=== PATIENT | male | born 1965 | race Caucasian/White ===

== ENCOUNTER → 2020-05-21 11:16 | Outpatient (BNVA) | payer OTHER, SELFPAY | PROVIDERS: PCP Internal Medicine; Visit Provider Internal Medicine Endocrinology, Diabetes & Metabolism | DX: E11.65 Type 2 diabetes mellitus with hyperglycemia (principal); Z79.4 Long term (current) use of insulin; E78.5 Hyperlipidemia, unspecified; I10 Essential (primary) hypertension; E66.3 Overweight; E55.9 Vitamin D deficiency, unspecified; Z79.899 Other long term (current) drug therapy | CPT/HCPCS: 82947; 99214 ==

== ENCOUNTER 2020-05-28 09:26 | Outpatient (REF) | payer OTHER, SELFPAY ==
[2020-05-28 10:54] LABS: Estimated Average Glucose 146 mg/dL; Hemoglobin A1c % 6.7 %
[2020-05-28 11:14] LABS: Alanine Aminotransferase 33 U/L (0-40); Albumin Level 4.5 g/dL (3.5-5.0); Alkaline Phosphatase 81 U/L (39-117); Anion Gap 13 (12-20); Aspartate Amino Transferase 20 U/L (5-37); Bilirubin Total 0.7 mg/dL (0.0-1.0); Blood Urea Nitrogen 13 mg/dL (9-16); Calcium 9.8 mg/dL (8.4-10.2); Carbon Dioxide 28 mmol/L (22-29); Chloride 105 mmol/L (96-108); Cholesterol 114 mg/dL; Estimated Glomerular Filt Rate > 60; Glucose Fasting 113 mg/dL (60-99); HDL Cholesterol 46 mg/dL; LDL Cholesterol Calculated 45 mg/dl; Potassium 4.6 mmol/l (3.3-5.1); Sodium 141 mmol/L (135-145); Total Protein 6.7 g/dL (6.5-8.0); Triglycerides 117 mg/dL
[2020-05-28 11:25] LABS: Vitamin B12 626 pg/mL (200-900)
[2020-05-28 11:26] LABS: Creatinine Urine 123.11 mg/dL
[2020-05-29 18:01] LABS: LDL Cholesterol Direct 53 mg/dL (<100)
== END 2020-05-28 09:27 | disposition home or self-care (01) ==
LOC: HO.LAB 09:26
PROVIDERS: PCP Internal Medicine; Referring Provider Internal Medicine Endocrinology, Diabetes & Metabolism; Visit Provider Internal Medicine
DX: E11.9 Type 2 diabetes mellitus without complications (principal); E78.00 Pure hypercholesterolemia, unspecified; I10 Essential (primary) hypertension
CPT/HCPCS: 80053; 80061; 82043; 82607; 83036; 83721

== ENCOUNTER → 2020-08-19 10:57 | Outpatient (BNVA) | payer OTHER, SELFPAY | PROVIDERS: PCP Internal Medicine; Visit Provider Internal Medicine Endocrinology, Diabetes & Metabolism | DX: Z76.89 Persons encountering health services in other specified circumstances (principal) | CPT/HCPCS: Q3014 ==

== ENCOUNTER 2020-08-28 08:07 | Outpatient (REF) | payer OTHER, SELFPAY ==
[2020-08-28 09:24] LABS: Chloride 105 mmol/L (96-108); Potassium 4.7 mmol/l (3.3-5.1); Sodium 140 mmol/L (135-145)
[2020-08-28 09:25] LABS: Alanine Aminotransferase 39 U/L (0-40); Albumin Level 4.7 g/dL (3.5-5.0); Alkaline Phosphatase 86 U/L (39-117); Anion Gap 12 (12-20); Aspartate Amino Transferase 21 U/L (5-37); Bilirubin Total 0.6 mg/dL (0.0-1.0); Blood Urea Nitrogen 17 mg/dL (9-16); Calcium 9.6 mg/dL (8.4-10.2); Carbon Dioxide 28 mmol/L (22-29); Cholesterol 106 mg/dL; Estimated Glomerular Filt Rate > 60; Glucose Random 112 mg/dL (60-115); HDL Cholesterol 40 mg/dL; LDL Cholesterol Calculated 46 mg/dl; Total Protein 6.9 g/dL (6.5-8.0); Triglycerides 100 mg/dL
[2020-08-28 11:18] LABS: Estimated Average Glucose 154 mg/dL
== END 2020-08-28 08:08 | disposition home or self-care (01) ==
LOC: HO.LAB 08:07
PROVIDERS: Visit Provider Internal Medicine
DX: E11.9 Type 2 diabetes mellitus without complications (principal); E78.00 Pure hypercholesterolemia, unspecified; I10 Essential (primary) hypertension
CPT/HCPCS: 36415; 80053; 80061; 83036

== ENCOUNTER 2020-09-01 15:52 | Outpatient (REF) | payer OTHER, SELFPAY | END 2020-09-01 15:53 | disposition home or self-care (01) | LOC: HO.LAB 15:52 | PROVIDERS: PCP Internal Medicine; Visit Provider Internal Medicine | DX: Z20.822 Contact with and (suspected) exposure to COVID-19 (principal) | CPT/HCPCS: 36415; C9803; U0003 ==

== ENCOUNTER 2020-09-04 14:25 | Outpatient (REF) | payer OTHER, SELFPAY ==
--- NOTE | 2020-09-04 15:05 | XR_ITS ---
EXAMINATION: XR HAND, LEFT CLINICAL INFORMATION: Trigger finger, left middle finger. COMPARISON: None TECHNIQUE: PA, lateral, and oblique views of the left hand. FINDINGS: There is no fracture or dislocation. Alignment is anatomic. Joint spaces are maintained. Small osteophytes at the first interphalangeal joint. Mild degenerative changes along the radial aspect of the wrist. Unremarkable appearance of the third digit. The soft tissues are unremarkable. XR/XR hand LT min 3V IMPRESSION: Mild degenerative changes as above. Unremarkable appearance of the third digit.
== END 2020-09-04 14:26 | disposition home or self-care (01) ==
LOC: HO.XRAY 14:25
PROVIDERS: PCP Internal Medicine; Referring Provider Internal Medicine; Visit Provider Student in an Organized Health Care Education/Training Program
DX: M65.332 Trigger finger, left middle finger (principal)
CPT/HCPCS: 73130; 99212

== ENCOUNTER 2020-09-23 13:30 | Outpatient (RCR) | payer OTHER, SELFPAY ==
--- NOTE | 2020-09-08 14:05 | MHC.OT.OEV ---
[address] [phone] F: [phone] Occupational Therapy Evaluation Diagnosis: TRIGGER FINGER OF L MF Date of Onset: 04/08/20 Date of Surgery: Attending Provider: Brooke Baker Prescribed Treatment: [facility] OLGA JACKSON Follow Up Appointment: History of Current Condition: REPORTS A THREE OR FOUR MONTH HISTORY OF TRIGGER FINGER TO THE LEFT MIDDLE FINGER, WELL PAIN TO THE LEFT INDEX FINGER. HE REPORTS PAIN IS GREATEST IN THE MORNING UPON WAKING. 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 Living Situation, Family and/or Social Support: LIVES WITH SPOUSE Current Level of Function and Occupation Self Care, Employment, Leisure: MILD DIFFICULTIES WITH BUTTONS, ZIPPERS AND TYING SHOES; OCCASIONAL DIFFICULTIES WITH CLEANING HOME WHEN ASSISTING SPOUSE Sleep: MODERATE DIFFICULTIES, PAIN GREATEST IN THE MORNING Driving: MILD DIFFICULTIES WITH GRASPING STEERING WHEEL WITH L HAND Pain Assessment Pain Score: 7 Pain Scale Used: Numeric (0 - 10) Pain Location and Description: L PIP OF MF/IF Aggravating Factors: FORCEFUL/ CLOSED FIST/ LOCKING OF DIGIT Alleviating Factors: TAKING ACETAMINOPHEN, IBUPROFEN; COLD INCREASES PAIN Skin and Soft Tissue Assessment Skin and Soft Tissue: Swelling Comments: OA CHANGES AT DIGITS, VERTICAL LINES ON VOLAR DIGITS, VOLAR NODULE D2/D3 MCP Sensory Assessment Temperature: Light Touch: WFL Proprioception: Vibration: Comments: DENIES Edema Assessment Upper Extremity: Left Impaired Lower Extremity: Comments: MILD EDEMA AT PIPJ CIRCUMFERENCE OF PIP LEFT 6.6 MIDDLE FINGER AND INDEX FINGER Dexterity Assessment Dexterity: Left Impaired Comments: FUNCTIONAL DEXTERITY TEST: LEFT 44 SECONDS (MOD FUNCTIONAL) ; RIGHT 24 SECONDS (FUNCTIONAL) Special Tests Comments: AROM(PROM) Strength Wrist Flexion: Extension: Ulnar Deviation: Radial Deviation: Comments: B/L ELBOW AND WRIST AROM WFL Flexion: Extension: Ulnar Deviation: Radial Deviation: Comments: Digits Index MCP: PIP: L 0/104 DIP: Long MCP: PIP: L 0/76 DIP: Ring MCP: PIP: DIP: Small MCP: PIP: DIP: Comments: Gross Grasp: L 82, R 100 Lateral Pinch: L 18, R 17 Two-Point Pinch: L 11, R 15 Three-Jaw Evangelist: L 17, R 20 Comments: Patient Education Primary Language: Manager Product Marketing Required: Yes Current Knowledge: Understands information with skills for self-management Teaching Method: Education Needs Identified on Evaluation: ADL's Disease Information Equipment Use Exercise Pain Safety How did patient/family demonstrate learning? Patient demonstrates Patient verbalizes Barriers to Learning: None Readiness for Learning: Accepting Who was educated? Patient Comments: JODI [id number] NGA Plan of Care Assessment: ROMULO IS A 55 Y/O DIABETIC M WITH A 3-4 MO HX OF TRIGGER FINGER TO NON-DOMINANT L HAND. HE REPORTS MILD-MODERATE DIFFICULTIES WITH PERFORMING ADLs AND IADLs. HE REPORTS PAIN IS GREATEST UPON WAKING IN THE MORNING OR WHEN HE MAKES A COMPLETE FIST OR WITH FORCEFUL GRIPPING. HE WOULD BENEFIT FROM CONTINUED OUTPATIENT OT TO ADDRESS THE AREAS MENTIONED ABOVE. STG Duration: 2 WEEKS Short Term Goals: IND HEP IND SELF MASSAGE IND ORTHOSIS WEAR IND EDEMA MANAGEMENT IND USE OF ICE/ HEAT REPORT <4/10 PAIN AT REST, <5/10 WITH LIGHT IADLs LTG Duration: 4 WEEKS Sub Assembly Team Worker Goals: L GRASP >90 POUNDS REPORT MIN LOCKING AT REST AND WITH ADLs/IADLs IMPROVE DEXTERITY TO FUNCTIONAL LEVEL, PER FUNCTIONAL DEXTERITY TEST OF <27 SECONDS REPORT <2/10 PAIN AT REST AND <3/10 PAIN WITH MODERATE LEVEL IADLs Frequency and Duration: The patient will be seen 2x/WEEK FOR 4 WEEKS Treatment Plan: Therapeutic Exercise Therapeutic Activity Home Exercise Program Splinting Neuro Re-ed Patient Education Edema Control ADL Training Ultrasound NMES Paraffin Fluidotherapy MHP Cold Packs Joint Mobilization Soft Tissue Mobilization Kinesiotaping Electronically Signed By: FRANCESCO HOYOS OTR/L Reviewed/agree with student documentation: N/A Therapist: Please sign and return to therapist, Thank you for your referral.
--- NOTE | 2020-10-07 08:26 | MHC.OT.DC ---
[address] [phone] F: [phone] Occupational Therapy Discharge Note Provider: Brooke Baker Diagnosis: TRIGGER FINGER OF L MF Date of Surgery: Date of Evaluation: 09/08/20 Date of Discharge: 10/07/20 Treatments to Date: 4 Cancellations to Date: 2 No Shows to Date: 1 Discharge Status: Improved Function Independent with HEP Patient Elected to Stop Discharge Summary: ROMULO WAS SEEN FOR TRIGGER FINGER OF THE LEFT MIDDLE FINGER. HE WAS PROVIDED WITH A FLEXION BLOCKING ORTHOSIS AND INSTRUCTED ON AVOIDING GRIPPING ACTIVITIES. HE NEEDED OCCASIONAL REMINDERS ON HIS HEP, OTHERWISE WAS MAKING GOOD GAINS TOWARDS HIS GOALS. Pt HAD FULL PROM AT TIME OF D/C, AND DECREASED PAIN. Pt ELECTED TO TRANSITION TO A HOME BASED PROGRAM, Pt WILL BE D/C'D FROM OT SERVICES. Electronically Signed By: CALEB EDWARDS/Pedrito Please Sign and return to therapist, thank you for your referral.
== END 2020-10-07 08:27 | disposition other institution (70) ==
LOC: HO.OT 13:30
PROVIDERS: PCP Internal Medicine; Visit Provider Student in an Organized Health Care Education/Training Program
DX: M65.332 Trigger finger, left middle finger (principal)
CPT/HCPCS: 97035; 97110; 97165; 97760

== ENCOUNTER → 2021-01-14 13:06 | Outpatient (BNVA) | payer OTHER, SELFPAY | PROVIDERS: PCP Internal Medicine; Visit Provider Surgery | DX: Z12.11 Encounter for screening for malignant neoplasm of colon (principal) | CPT/HCPCS: 99202 ==

== ENCOUNTER 2021-02-13 07:06 | Day surgery (SDC) | payer OTHER, SELFPAY ==
[2021-02-05 14:29] VITALS: BMI 30.4
--- NOTE | 2021-02-11 12:14 | P.CONAN_ITS ---
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) Dyslipidemia (Acute) Past Medical History Medical History (Updated 02/13/21 @ 07:58 by Sruthi Yousif) Colon cancer screening Depression Diabetes type 2, uncontrolled Dyslipidemia History of pancreatitis Hypertension senior living (current) use of insulin Non-proliferative diabetic retinopathy, mild, both eyes Overweight (BMI 25.0-29.9) Vitamin D deficiency Family History Family History Father Diabetes Prostate cancer Mother Diabetes Surgical History Surgical History Hx of appendectomy Hx of colonoscopy Hx of inguinal hernia repair Hx of knee surgery Social History Social History (Updated 02/13/21 @ 07:58 by Sruthi Yousif) Household Members: Spouse and Children Alcohol intake: never Patient Tobacco Use Status: Former Tobacco user Quit Date: Quit one and a half years ago. Heavy smoker before Tobacco use type: Cigarette Smoked in Last 30 Days: No Use of substances other than those prescribed or required for medical reasons: No Are you DNR?: No Advance Directives: No Advance Directives Information Provided: No Recently lost weight without trying: Yes How much weight loss: 2-13 pounds Eating poorly because of decreased appetite: No Nutrition screen score: 3 Nutrition Risks: No Nutritional Risk Meds Allergies Allergy/AdvReac Type Severity Reaction Status Date / Time Penicillins [PENICILLINS] Allergy Intermediate ITCHING,SWE Verified 01/14/21 13:33 LLING penicillin V Allergy Unknown rash & Verified 01/14/21 13:33 angioedema insulin glargine AdvReac Mild adverse Verified 01/14/21 13:33 reaction- burning at injection site rosuvastatin [Crestor] AdvReac Unknown myalgias Verified 01/14/21 13:33 Home Medications Medication Instructions Recorded Confirmed Last Taken Type albuterol sulfate 90 mcg/actuation 2 puff INHALATION Q6H PRN 05/21/20 08/19/20 Unknown History aerosol inhaler aripiprazole 15 mg tablet 15 mg PO BEDTIME 05/21/20 08/19/20 Unknown History fluticasone propionate 110 1 puff INHALATION BID 05/21/20 08/19/20 Unknown History mcg/actuation HFA aerosol inhaler sertraline 100 mg tablet 200 mg PO DAILY tab 05/21/20 08/19/20 Unknown History diphenhydramine HCl 50 mg capsule 50 mg PO BEDTIME 08/19/20 08/19/20 Unknown History doxazosin 1 mg tablet 1 mg PO DAILY 09/04/20 Unknown History omeprazole 20 mg capsule,delayed 20 mg PO DAILY 09/04/20 Unknown History release trazodone 100 mg tablet 100 mg PO BEDTIME PRN 09/04/20 Unknown History Exam Exam Date and Time: February 11, 2021 1214 Height,Weight and Vital Signs: Height 5 ft 8 in Weight 90.718 kg Assessment and Plan Assessment Anesthesia Assessment: Chart Reviewed Documented by User: Sruthi Yousif 02/13/21 08:02 [facility] Past Medical History Medical History (Updated 02/13/21 @ 07:58 by Sruthi Yousif) Colon cancer screening Depression Diabetes type 2, uncontrolled Dyslipidemia History of pancreatitis 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 Non-proliferative diabetic retinopathy, mild, both eyes Overweight (BMI 25.0-29.9) Vitamin D deficiency Family History Family History Father Diabetes Prostate cancer Mother Diabetes Family history of problems with anesthesia: No Surgical History Surgical History Hx of appendectomy Hx of colonoscopy Hx of inguinal hernia repair Hx of knee surgery History of Problems with Anesthesia: No Social History Social History (Updated 02/13/21 @ 07:58 by Sruthi Yousif) Household Members: Spouse and Children Alcohol intake: never Patient Tobacco Use Status: Former Tobacco user Quit Date: Quit one and a half years ago. Heavy smoker before Tobacco use type: Cigarette Smoked in Last 30 Days: No Use of substances other than those prescribed or required for medical reasons: No Are you DNR?: No Advance Directives: No Advance Directives Information Provided: No Recently lost weight without trying: Yes How much weight loss: 2-13 pounds Eating poorly because of decreased appetite: No Nutrition screen score: 3 Nutrition Risks: No Nutritional Risk Meds Allergies Allergy/AdvReac Type Severity Reaction Status Date / Time Penicillins [PENICILLINS] Allergy Intermediate ITCHING,SWE Verified 01/14/21 13:33 LLING penicillin V Allergy Unknown rash & Verified 01/14/21 13:33 angioedema insulin glargine AdvReac Mild adverse Verified 01/14/21 13:33 reaction- burning at injection site rosuvastatin [Crestor] AdvReac Unknown myalgias Verified 01/14/21 13:33 Home Medications Medication Instructions Recorded Confirmed Last Taken Type albuterol sulfate 90 mcg/actuation 2 puff INHALATION Q6H PRN 05/21/20 08/19/20 Unknown History aerosol inhaler aripiprazole 15 mg tablet 15 mg PO BEDTIME 05/21/20 08/19/20 Unknown History fluticasone propionate 110 1 puff INHALATION BID 05/21/20 08/19/20 Unknown History mcg/actuation HFA aerosol inhaler sertraline 100 mg tablet 200 mg PO DAILY tab 05/21/20 08/19/20 Unknown History diphenhydramine HCl 50 mg capsule 50 mg PO BEDTIME 08/19/20 08/19/20 Unknown History doxazosin 1 mg tablet 1 mg PO DAILY 09/04/20 Unknown History omeprazole 20 mg capsule,delayed 20 mg PO DAILY 09/04/20 Unknown History release trazodone 100 mg tablet 100 mg PO BEDTIME PRN 09/04/20 Unknown History Exam Height,Weight and Vital Signs: Vital Signs Temp Pulse Resp BP Pulse Ox 02/13/21 07:37 97.2 F 47 L 16 111/69 98 Pertinent Lab Results Pertinent Lab Results: Lab Results 02/13/21 Range/Units 07:17 POC Glucose 95 (60-115) mg/dL Airway Mallampati Class: II TM Dist: >3cm Neck ROM: Full Loose/Missing/Broken Teeth: No Heart: RRR Lungs: Wheeze R lung. Disappeared post coughing Assessment and Plan Assessment Anesthesia Assessment: Anesthesia Plan Discussed and Chart Reviewed Final Anesthetic Review NPO: Yes ASA Class: II Final Preanesthetic Review: No Changes in Pt Med Stat, Meds/Allgs Chart Reviewed, Consent Obtained/Reviewed and Anes Risks/Benef Reviewed Patient Risk: Intermediate Procedure Risk: Low Assessment/Block/Sedation in SS: Assess/Block/Sedation-SS Anesthetic Plan Anesthetic Plan: MAC: Disposition: Standard PACU
[2021-02-13 07:26] LABS: Glucose, Whole Blood 95 mg/dL (60-115)
[2021-02-13 07:35] VITALS: BMI 30.4
[2021-02-13 07:37] VITALS: BP 111/69; PULSE 47; RESP 16; TEMP 36.2; O2SAT 98
[2021-02-13] MEDS: Lactated Ringers 1,000 ML 100 ML IVCONT (07:48)
--- NOTE | 2021-02-13 07:54 | MHC.SHP ---
Pre-Procedural Eval Section A Date of Service: 02/13/21 Section B Chief Complaint: Screening Allergies: Allergies Allergy/AdvReac Type Severity Reaction Status Date / Time Penicillins [PENICILLINS] Allergy Intermediate ITCHING,SWE Verified 01/14/21 13:33 LLING penicillin V Allergy Unknown rash & Verified 01/14/21 13:33 angioedema insulin glargine AdvReac Mild adverse Verified 01/14/21 13:33 reaction- burning at injection site rosuvastatin [Crestor] AdvReac Unknown myalgias Verified 01/14/21 13:33 Plan I have reviewed the history and physical and performed a pertinent physical examination on my patient. No changes have occurred unless specified.
--- NOTE | 2021-02-13 08:33 | W.PM.OPN ---
Operative Note Operative Note Date of Service: 02/13/21 Narrative: Preop diagnosis: Colon cancer screening Postop diagnosis: 1. Sigmoid diverticulosis 2. internal and external hemorrhoids Procedure: Colonoscopy The patient is a 55-year-old male here for screening colonoscopy. Headache colonoscopy 5 years ago in his bowel prep was suboptimal so had recommended another colonoscopy in 5 years. He understood the technique of colonoscopy. He was aware of the risks, benefits, and alternatives He was brought to the operating room placed in left lateral decubitus position under monitored anesthesia care. A full digital rectal was done. There were no palpable anal lesions. He did have internal and external hemorrhoids . The tip of the Olympus colonoscope was gently introduced through the anal orifice and advanced with insufflation all the way to cecum. The cecum was intubated. The cecum was identified by visualization of the ileocecal valve as well as the appendiceal orifice. The cecal mucosa was unremarkable. The scope was gradually withdrawn with careful examination of the entire colonic mucosa being done with scope withdrawal. The patient did have some segments of the colon with thin watery stools so we had to periodically irrigate and suction out the irrigant fluid. It was unlikely that any lesion may have been missed as I was able to examine the colon mucosa adequately. He did have moderate diverticulosis in the sigmoid. The rectum was reached. There were no lesions seen. The anal shelf and anal canal were unremarkable except for prominent internal and external hemorrhoids. The scope was Withdrawn completely with desufflation. The patient tolerated procedure well. There were no complications noted. He falls at average risk for colon cancer so he was next colonoscopy may be in the next 10 years. Withdrawal time was about 7 minutes.
[2021-02-13 08:37] VITALS: BP 87/51; PULSE 49; RESP 17; TEMP 36.1; O2SAT 94
--- NOTE | 2021-02-13 08:38 | PM.OP ---
Brief Operative Note Date of Service: 02/13/21 Pre-op diagnosis: colon cancer screen Post-op diagnosis: other ( sigmoid diverticulosis, internal and external hemorrhoids) Procedure: colonoscopy Surgeon: Tuan Hunter MD Anesthesia: MAC Was an Project Engineer used for this Procedure?: No Estimated blood loss (mL): 0 Pathology: none sent Condition: stable Disposition: PACU
[2021-02-13 08:52] VITALS: BP 91/43; PULSE 53; RESP 16; TEMP 36.1; O2SAT 99
[2021-02-13 08:57] VITALS: BP 111/72; PULSE 49; RESP 17; O2SAT 99
== END 2021-02-13 09:29 | disposition home or self-care (01) ==
PROVIDERS: PCP Internal Medicine; Visit Provider Surgery
PROC: 0DJD8ZZ Inspection of Lower Intestinal Tract, Via Natural or Artificial Opening Endoscopic (ICD-10-PCS; CPT 45378; principal; 2021-02-13 08:30)
DX: Z12.11 Encounter for screening for malignant neoplasm of colon (principal); K57.30 Diverticulosis of large intestine without perforation or abscess without bleeding; K64.8 Other hemorrhoids; K64.4 Residual hemorrhoidal skin tags; I10 Essential (primary) hypertension; E11.3293 Type 2 diabetes mellitus with mild nonproliferative diabetic retinopathy without macular edema, bilateral; Z79.4 Long term (current) use of insulin; E55.9 Vitamin D deficiency, unspecified; Z79.899 Other long term (current) drug therapy; Z88.0 Allergy status to penicillin; Z88.8 Allergy status to other drugs, medicaments and biological substances; Z87.891 Personal history of nicotine dependence
CPT/HCPCS: G0121; 82947

== ENCOUNTER → 2021-02-17 12:57 | Outpatient (BNVA) | payer OTHER, SELFPAY | PROVIDERS: PCP Internal Medicine; Visit Provider Internal Medicine Endocrinology, Diabetes & Metabolism | DX: E11.65 Type 2 diabetes mellitus with hyperglycemia (principal); E11.3293 Type 2 diabetes mellitus with mild nonproliferative diabetic retinopathy without macular edema, bilateral; E78.5 Hyperlipidemia, unspecified; E55.9 Vitamin D deficiency, unspecified; E66.3 Overweight; I10 Essential (primary) hypertension; Z79.4 Long term (current) use of insulin | CPT/HCPCS: 82947; 99212 ==

== ENCOUNTER 2021-02-19 07:45 | Outpatient (REF) | payer OTHER, SELFPAY ==
[2021-02-19 08:45] LABS: Estimated Average Glucose 163 mg/dL; Hemoglobin A1c % 7.3 %
[2021-02-19 09:28] LABS: Alanine Aminotransferase 29 U/L (0-40); Albumin Level 4.6 g/dL (3.5-5.0); Alkaline Phosphatase 78 U/L (39-117); Anion Gap 14 (12-20); Aspartate Amino Transferase 25 U/L (5-37); Blood Urea Nitrogen 18 mg/dL (9-16); Calcium 9.7 mg/dL (8.4-10.2); Carbon Dioxide 26 mmol/L (22-29); Chloride 104 mmol/L (96-108); Estimated Glomerular Filt Rate > 60; Glucose Random 134 mg/dL (60-115); Potassium 4.9 mmol/L (3.3-5.1); Sodium 139 mmol/L (135-145); Total Protein 7.1 g/dL (6.5-8.0)
== END 2021-02-19 07:46 | disposition home or self-care (01) ==
LOC: HO.LAB 07:45
PROVIDERS: PCP Internal Medicine; Visit Provider Internal Medicine
DX: E11.9 Type 2 diabetes mellitus without complications (principal); E78.00 Pure hypercholesterolemia, unspecified; I10 Essential (primary) hypertension
CPT/HCPCS: 36415; 80053; 83036

== ENCOUNTER → 2021-03-02 10:19 | Outpatient (BNVA) | payer OTHER, SELFPAY | PROVIDERS: PCP Internal Medicine; Visit Provider Surgery | CPT/HCPCS: Q3014 ==

== ENCOUNTER 2021-05-19 08:14 | Outpatient (REF) | payer OTHER, SELFPAY ==
[2021-05-19 09:24] LABS: Estimated Average Glucose 186 mg/dL; Hemoglobin A1c % 8.1 %
[2021-05-19 09:53] LABS: Alanine Aminotransferase 38 U/L (0-40); Albumin Level 4.5 g/dL (3.5-5.0); Alkaline Phosphatase 105 U/L (39-117); Anion Gap 12 (12-20); Aspartate Amino Transferase 24 U/L (5-37); Bilirubin Total 0.6 mg/dL (0.0-1.0); Blood Urea Nitrogen 13 mg/dL (9-16); Carbon Dioxide 27 mmol/L (22-29); Chloride 106 mmol/L (96-108); Cholesterol 115 mg/dL; Estimated Glomerular Filt Rate > 60; Glucose Random 166 mg/dL (60-115); HDL Cholesterol 39 mg/dL; LDL Cholesterol Calculated 45 mg/dl; Potassium 4.6 mmol/L (3.3-5.1); Sodium 140 mmol/L (135-145); Total Protein 6.7 g/dL (6.5-8.0); Triglycerides 157 mg/dL
[2021-05-19 10:48] LABS: Creatinine Urine 92.78 mg/dL; Microalbum/Creatinine Ratio Ur 6.4 ug/mg cr
== END 2021-05-19 08:15 | disposition home or self-care (01) ==
LOC: HO.LAB 08:14
PROVIDERS: PCP Internal Medicine; Visit Provider Internal Medicine
DX: Z00.00 Encounter for general adult medical examination without abnormal findings (principal); I10 Essential (primary) hypertension; F17.211 Nicotine dependence, cigarettes, in remission; E11.9 Type 2 diabetes mellitus without complications; E78.1 Pure hyperglyceridemia
CPT/HCPCS: 36415; 80053; 80061; 82043; 83036

== ENCOUNTER → 2021-06-25 12:38 | Outpatient (BNVA) | payer OTHER, SELFPAY | PROVIDERS: PCP Internal Medicine; Visit Provider Nurse Practitioner Gerontology | DX: E11.65 Type 2 diabetes mellitus with hyperglycemia (principal); E11.3293 Type 2 diabetes mellitus with mild nonproliferative diabetic retinopathy without macular edema, bilateral; E78.5 Hyperlipidemia, unspecified; E55.9 Vitamin D deficiency, unspecified; E66.09 Other obesity due to excess calories; I10 Essential (primary) hypertension; Z79.4 Long term (current) use of insulin; Z68.30 Body mass index [BMI] 30.0-30.9, adult | CPT/HCPCS: 82947; Q3014 ==

== ENCOUNTER 2021-08-18 09:36 | Outpatient (REF) | payer OTHER, SELFPAY ==
[2021-08-18 10:35] LABS: Estimated Average Glucose 200 mg/dL; Hemoglobin A1c % 8.6 %
[2021-08-18 10:56] LABS: Alanine Aminotransferase 42 U/L (0-40); Albumin Level 4.4 g/dL (3.5-5.0); Alkaline Phosphatase 101 U/L (39-117); Anion Gap 11 (12-20); Aspartate Amino Transferase 28 U/L (5-37); Bilirubin Total 0.7 mg/dL (0.0-1.0); Blood Urea Nitrogen 16 mg/dL (9-16); Calcium 9.6 mg/dL (8.4-10.2); Carbon Dioxide 26 mmol/L (22-29); Chloride 106 mmol/L (96-108); Estimated Glomerular Filt Rate > 60; Glucose Random 138 mg/dL (60-115); Potassium 4.9 mmol/L (3.3-5.1); Sodium 138 mmol/L (135-145)
[2021-08-18 13:17] LABS: Binax Internal Control QC Valid; Binax Now Covid-19 Ag Negative (Negative)
== END 2021-08-18 09:37 | disposition home or self-care (01) ==
LOC: HO.LAB 09:36
PROVIDERS: Internal Medicine; PCP Internal Medicine; Visit Provider Internal Medicine
DX: Z20.822 Contact with and (suspected) exposure to COVID-19 (principal); E11.65 Type 2 diabetes mellitus with hyperglycemia; E78.00 Pure hypercholesterolemia, unspecified; I10 Essential (primary) hypertension; F17.211 Nicotine dependence, cigarettes, in remission
CPT/HCPCS: 36415; 80053; 83036; C9803

== ENCOUNTER 2021-08-18 11:07 | Outpatient (REF) | payer OTHER, SELFPAY | END 2021-08-18 11:08 | disposition home or self-care (01) | LOC: HO.LAB 11:07 | PROVIDERS: Visit Provider Internal Medicine | DX: Z13.89 Encounter for screening for other disorder (principal) ==

== ENCOUNTER 2021-10-01 13:12 | Outpatient (REF) | payer OTHER, SELFPAY | END 2021-10-01 13:13 | disposition home or self-care (01) | LOC: HO.LAB 13:12 | PROVIDERS: PCP Internal Medicine; Visit Provider Nurse Practitioner Gerontology | DX: E11.65 Type 2 diabetes mellitus with hyperglycemia (principal); E55.9 Vitamin D deficiency, unspecified; E11.3293 Type 2 diabetes mellitus with mild nonproliferative diabetic retinopathy without macular edema, bilateral; E78.5 Hyperlipidemia, unspecified; I10 Essential (primary) hypertension; E66.09 Other obesity due to excess calories; Z68.30 Body mass index [BMI] 30.0-30.9, adult; Z79.4 Long term (current) use of insulin | CPT/HCPCS: 36415; 82306; 82947; 99212 ==

== ENCOUNTER 2021-11-23 08:34 | Outpatient (REF) | payer OTHER, SELFPAY ==
[2021-11-23 09:20] LABS: Estimated Average Glucose 174 mg/dL; Hemoglobin A1c % 7.7 %
[2021-11-23 09:47] LABS: Alanine Aminotransferase 32 U/L (0-40); Albumin Level 4.6 g/dL (3.5-5.0); Alkaline Phosphatase 90 U/L (39-117); Anion Gap 12 (12-20); Aspartate Amino Transferase 21 U/L (5-37); Bilirubin Total 1.2 mg/dL (0.0-1.0); Blood Urea Nitrogen 14 mg/dL (9-16); Calcium 10.2 mg/dL (8.4-10.2); Carbon Dioxide 27 mmol/L (22-29); Chloride 104 mmol/L (96-108); Estimated Glomerular Filt Rate > 60; Glucose Random 178 mg/dL (60-115); Potassium 4.5 mmol/L (3.3-5.1); Sodium 138 mmol/L (135-145); Total Protein 7.1 g/dL (6.5-8.0)
== END 2021-11-23 08:35 | disposition home or self-care (01) ==
LOC: HO.LAB 08:34
PROVIDERS: PCP Internal Medicine; Visit Provider Internal Medicine
DX: E11.65 Type 2 diabetes mellitus with hyperglycemia (principal); I10 Essential (primary) hypertension; F17.211 Nicotine dependence, cigarettes, in remission
CPT/HCPCS: 36415; 80053; 83036

== ENCOUNTER 2022-01-15 13:21 | Outpatient (REF) | payer OTHER, SELFPAY ==
--- NOTE | ~2022-01-15 | XR_ITS ---
EXAMINATION: XR SHOULDER, RIGHT CLINICAL INFORMATION: Chronic right shoulder pain COMPARISON: None TECHNIQUE: AP external rotation, Grashey, scapular Y, and axillary views of the right shoulder. FINDINGS: No fracture or dislocation. The glenohumeral joint is well aligned. The joint space is mildly narrowed with small osteophytes. Mild hypertrophic degenerative change of the acromioclavicular joint. The visualized lung is clear. The visualized ribs are intact. XR/XR shoulder RT min 2V IMPRESSION: Mild degenerative changes at the right shoulder.
--- NOTE | ~2022-01-15 | XR_ITS ---
EXAMINATION: XR KNEE, RIGHT CLINICAL INFORMATION: Chronic right knee pain COMPARISON: 03/13/2019 TECHNIQUE: Four views of the right knee. This includes upright AP and tunnel views. FINDINGS: No fracture or subluxation. Mild medial compartment joint space narrowing, increased from prior. Small marginal osteophytes in all compartments. No joint effusion. The soft tissues appear unremarkable. XR/XR knee RT 3V IMPRESSION: Mild tricompartmental degenerative change, somewhat progressed since 2019.
== END 2022-01-15 13:22 | disposition home or self-care (01) ==
LOC: HO.XRAY 13:21
PROVIDERS: PCP Internal Medicine; Visit Provider Nurse Practitioner Family
DX: M25.511 Pain in right shoulder (principal); M25.561 Pain in right knee; M65.332 Trigger finger, left middle finger; Z79.899 Other long term (current) drug therapy
CPT/HCPCS: 73030; 73562; 99212

== ENCOUNTER → 2022-02-10 14:43 | Outpatient (BNVA) | payer OTHER, SELFPAY | PROVIDERS: PCP Internal Medicine; Visit Provider Orthopaedic Surgery | DX: M65.332 Trigger finger, left middle finger (principal); M65.322 Trigger finger, left index finger | CPT/HCPCS: 99202 ==

== ENCOUNTER 2022-02-19 09:47 | Outpatient (REF) | payer OTHER, SELFPAY ==
[2022-02-19 10:57] LABS: Estimated Average Glucose 189 mg/dL; Hemoglobin A1c % 8.2 %
[2022-02-19 11:22] LABS: Alanine Aminotransferase 38 U/L (0-40); Albumin Level 4.3 g/dL (3.5-5.0); Alkaline Phosphatase 98 U/L (39-117); Anion Gap 11 (12-20); Aspartate Amino Transferase 26 U/L (5-37); Bilirubin Total 0.8 mg/dL (0.0-1.0); Blood Urea Nitrogen 11 mg/dL (9-16); Calcium 8.7 mg/dL (8.4-10.2); Carbon Dioxide 24 mmol/L (22-29); Chloride 108 mmol/L (96-108); Estimated Glomerular Filt Rate > 60; Glucose Random 153 mg/dL (60-115); Potassium 4.4 mmol/L (3.3-5.1); Sodium 139 mmol/L (135-145); Total Protein 6.6 g/dL (6.5-8.0)
== END 2022-02-19 09:48 | disposition home or self-care (01) ==
LOC: HO.LAB 09:47
PROVIDERS: PCP Internal Medicine; Visit Provider Internal Medicine
DX: E11.65 Type 2 diabetes mellitus with hyperglycemia (principal); E78.1 Pure hyperglyceridemia; F17.201 Nicotine dependence, unspecified, in remission; I10 Essential (primary) hypertension; M23.91 Unspecified internal derangement of right knee
CPT/HCPCS: 36415; 80053; 83036

== ENCOUNTER → 2022-03-05 08:53 | Outpatient (BNVA) | payer OTHER, SELFPAY | PROVIDERS: PCP Internal Medicine; Visit Provider Physician Assistant | DX: M19.011 Primary osteoarthritis, right shoulder (principal); E11.9 Type 2 diabetes mellitus without complications | CPT/HCPCS: 20610; 99212; J1020 ==

== ENCOUNTER 2022-03-09 08:36 | Outpatient (REF) | payer OTHER, SELFPAY ==
[2022-03-09 09:10] LABS: Estimated Average Glucose 180 mg/dL; Hemoglobin A1c % 7.9 %
[2022-03-09 09:27] LABS: Alanine Aminotransferase 32 U/L (0-40); Albumin Level 4.8 g/dL (3.5-5.0); Alkaline Phosphatase 112 U/L (39-117); Anion Gap 16 (12-20); Aspartate Amino Transferase 20 U/L (5-37); Bilirubin Total 0.7 mg/dL (0.0-1.0); Blood Urea Nitrogen 20 mg/dL (9-16); Calcium 9.9 mg/dL (8.4-10.2); Carbon Dioxide 26 mmol/L (22-29); Chloride 104 mmol/L (96-108); Cholesterol 118 mg/dL; Estimated Glomerular Filt Rate > 60; Glucose Random 163 mg/dL (60-115); HDL Cholesterol 46 mg/dL; LDL Cholesterol Calculated 44 mg/dl; Potassium 4.6 mmol/L (3.3-5.1); Sodium 141 mmol/L (135-145); Total Protein 7.3 g/dL (6.5-8.0); Triglycerides 144 mg/dL
[2022-03-09 09:50] LABS: Prostate Specific Antigen Scr 1.11 ng/mL (<0.05-4.0)
[2022-03-09 09:51] LABS: Vitamin B12 515 pg/mL (200-900)
[2022-03-09 11:23] LABS: Creatinine Urine 92.96 mg/dL; Microalbum/Creatinine Ratio Ur 7.5 ug/mg cr
== END 2022-03-09 08:37 | disposition home or self-care (01) ==
LOC: HO.LAB 08:36
PROVIDERS: PCP Internal Medicine; Visit Provider Internal Medicine
DX: Z00.01 Encounter for general adult medical examination with abnormal findings (principal); Z12.5 Encounter for screening for malignant neoplasm of prostate; E11.65 Type 2 diabetes mellitus with hyperglycemia; E78.1 Pure hyperglyceridemia; F32.9 Major depressive disorder, single episode, unspecified
CPT/HCPCS: 36415; 80053; 80061; 82043; 82607; 83036; 84153

== ENCOUNTER → 2022-05-18 14:28 | Outpatient (BNVA) | payer OTHER, SELFPAY | PROVIDERS: PCP Internal Medicine; Visit Provider Orthopaedic Surgery | DX: M65.322 Trigger finger, left index finger (principal); M65.332 Trigger finger, left middle finger | CPT/HCPCS: 99212 ==

== ENCOUNTER 2022-06-07 13:04 | Day surgery (SDC) | payer OTHER, SELFPAY ==
[2022-06-07 13:34] VITALS: BMI 29.5
[2022-06-07 13:35] VITALS: BP 120/78; PULSE 68; RESP 16; TEMP 36.1; O2SAT 99
--- NOTE | 2022-06-07 15:59 | MHC.SHP ---
Pre-Procedural Eval Section A Date of Service: 06/07/22 The patient is an INPATIENT: No Changes since office visit: No Cold of Flu in the past 2 weeks, No New Medical Problems, No Changes in Medication and No Patient answered all questions The History & Physical has been completed within 30 days and I have reviewed it.: Yes Section B Chief Complaint: Trigger finger, left middle finger and index Allergies: Allergies Allergy/AdvReac Type Severity Reaction Status Date / Time Penicillins [PENICILLINS] Allergy Intermediate ITCHING,SWE Verified 05/18/22 15:24 LLING penicillin V Allergy Unknown rash & Verified 05/18/22 15:24 angioedema insulin glargine AdvReac Mild adverse Verified 05/18/22 15:24 reaction- burning at injection site rosuvastatin [Crestor] AdvReac Unknown myalgias Verified 05/18/22 15:24 Plan I have reviewed the history and physical and performed a pertinent physical examination on my patient. No changes have occurred unless specified.
--- NOTE | 2022-06-07 15:59 | W.PM.OPN ---
Operative Note Operative Note Date of Service: 06/07/22 Narrative: Operative Note Preop diagnosis: 1. left index finger Trigger finger 2. Left middle finger trigger finger Postop diagnosis: same Procedure: 1. left index finger A1 cornelius release 2. Left middle finger A1 cornelius release Surgeon: Floresita Rowe MD Anesthesia: local block using 1% lidocaine with epinephrine Findings: No locking or catching after A1 cornelius release EBL: Less than 5 mL Tourniquet time: None Specimens: None Complications: None Disposition: Brought to recovery room in stable condition Plan: Follow-up for 10-14 days for wound check and suture removal Indications: The patient is 57 years old, with left index finger and left middle finger trigger fingers that have been unresponsive to nonoperative management. The risks and benefits of operative treatment including but not limited to risk of damage to blood vessels, nerves, tendons, infection, persistent pain, persistent symptoms, recurrence or possible need for additional surgery were discussed with the patient and the patient wishes to proceed with surgery. Procedure: Once consent was obtained a local block was performed in the preop area using a combination of 1% lidocaine with epinephrine. The patient was then brought back to the operating suite and placed on the operative table in supine position. A tourniquet was applied to the proximal aspect of the left upper extremity and the limb was prepped and draped in a standard surgical fashion. Once assured that we had a good block, a 1.5 cm oblique incision was made centered over the A1 cornelius of the left index finger . The incision was made through the skin to the subcutaneous tissues using a #15 blade. Careful dissection was made down to the level of the A1 conrelius using tenotomy scissors, with care being taken to protect the nearby neurovascular structures. A longitudinal incision was made in the A1 cornelius 1st using a #15 blade, then using tenotomy scissors under direct visualization. The A1 cornelius was noted to be thickened. Following our A1 cornelius release, we no longer saw any locking or catching of the digit with flexion and extension. Once assured that we had a good block, a 1.5 cm oblique incision was made centered over the A1 cornelius of the left middle finger . The incision was made through the skin to the subcutaneous tissues using a #15 blade. Careful dissection was made down to the level of the A1 cornelius using tenotomy scissors, with care being taken to protect the nearby neurovascular structures. A longitudinal incision was made in the A1 cornelius 1st using a #15 blade, then using tenotomy scissors under direct visualization. The A1 cornelius was noted to be thickened. Following our A1 cornelius release, we no longer saw any locking or catching of the digit with flexion and extension. Once satisfied with our A1 cornelius releases the wounds were rcopiously irrigated with normal saline and hemostasis was obtained with a brief period of local pressure. The skin edges were reapproximated with some 5.0 nylon suture material and a sterile dressing was applied. The patient appears to have tolerated the procedure well and with no complications. All digits were well vascularized at the conclusion of the case.
[2022-06-07 17:31] VITALS: BP 119/65; PULSE 55; RESP 16; TEMP 36.4; O2SAT 96
== END 2022-06-07 18:39 | disposition home or self-care (01) ==
PROVIDERS: PCP Internal Medicine; Visit Provider Orthopaedic Surgery
PROC: (CPT 26055; principal; 2022-06-07 14:20)
DX: M65.322 Trigger finger, left index finger (principal); M65.332 Trigger finger, left middle finger; I10 Essential (primary) hypertension; E11.3293 Type 2 diabetes mellitus with mild nonproliferative diabetic retinopathy without macular edema, bilateral; E78.5 Hyperlipidemia, unspecified; E55.9 Vitamin D deficiency, unspecified; E66.09 Other obesity due to excess calories; Z68.29 Body mass index [BMI] 29.0-29.9, adult; F32.A Depression, unspecified; Z79.4 Long term (current) use of insulin; Z88.8 Allergy status to other drugs, medicaments and biological substances; Z88.0 Allergy status to penicillin
CPT/HCPCS: 26055 ×2; J0171; J2795

== ENCOUNTER 2022-07-20 08:32 | Outpatient (REF) | payer OTHER, SELFPAY ==
[2022-07-20 09:35] LABS: Estimated Average Glucose 192 mg/dL; Hemoglobin A1c % 8.3 %
[2022-07-20 11:28] LABS: Alanine Aminotransferase 35 U/L (0-40); Albumin Level 4.5 g/dL (3.5-5.0); Alkaline Phosphatase 94 U/L (39-117); Anion Gap 13 (12-20); Aspartate Amino Transferase 22 U/L (5-37); Blood Urea Nitrogen 23 mg/dL (9-16); Calcium 9.7 mg/dL (8.4-10.2); Carbon Dioxide 25 mmol/L (22-29); Chloride 107 mmol/L (96-108); Cholesterol 129 mg/dL; Estimated Glomerular Filt Rate > 60; Glucose Random 149 mg/dL (60-115); HDL Cholesterol 39 mg/dL; LDL Cholesterol Calculated 63 mg/dl; Potassium 4.7 mmol/L (3.3-5.1); Prostate Specific Antigen Scr 1.06 ng/mL (<0.05-4.0); Sodium 140 mmol/L (135-145); Total Protein 6.7 g/dL (6.5-8.0); Triglycerides 139 mg/dL
[2022-07-20 11:30] LABS: Creatinine Urine 82.42 mg/dL; Microalbumin Urine < 5.0 mg/L
[2022-07-20 11:35] LABS: Vitamin B12 589 pg/mL (200-900)
== END 2022-07-20 08:33 | disposition home or self-care (01) ==
LOC: HO.LAB 08:32
PROVIDERS: PCP Internal Medicine; Visit Provider Internal Medicine
DX: Z00.01 Encounter for general adult medical examination with abnormal findings (principal); E11.65 Type 2 diabetes mellitus with hyperglycemia; E78.1 Pure hyperglyceridemia; F32.9 Major depressive disorder, single episode, unspecified; Z12.5 Encounter for screening for malignant neoplasm of prostate
CPT/HCPCS: 36415; 80053; 80061; 82043; 82607; 83036; 84153

== ENCOUNTER → 2022-08-24 10:55 | Outpatient (BNVA) | payer OTHER, SELFPAY | PROVIDERS: PCP Internal Medicine; Visit Provider Nurse Practitioner Family | DX: M65.332 Trigger finger, left middle finger (principal); M65.322 Trigger finger, left index finger; M19.011 Primary osteoarthritis, right shoulder; M17.11 Unilateral primary osteoarthritis, right knee | CPT/HCPCS: 99212 ==

== ENCOUNTER 2022-10-18 06:47 | Outpatient (REF) | payer OTHER, SELFPAY ==
[2022-10-18 07:30] LABS: Estimated Average Glucose 220 mg/dL; Hemoglobin A1c % 9.3 %
[2022-10-18 07:57] LABS: Alanine Aminotransferase 44 U/L (0-40); Albumin Level 4.5 g/dL (3.5-5.0); Alkaline Phosphatase 85 U/L (39-117); Anion Gap 13 (12-20); Aspartate Amino Transferase 26 U/L (5-37); Bilirubin Total 1.5 mg/dL (0.0-1.0); Blood Urea Nitrogen 18 mg/dL (9-16); Calcium 9.3 mg/dL (8.4-10.2); Carbon Dioxide 27 mmol/L (22-29); Chloride 105 mmol/L (96-108); Estimated Glomerular Filt Rate > 60; Glucose Random 138 mg/dL (60-115); Potassium 4.6 mmol/L (3.3-5.1); Sodium 140 mmol/L (135-145); Total Protein 6.7 g/dL (6.5-8.0)
[2022-10-18 08:05] LABS: C Reactive Protein < 0.04 mg/dL (< or = 0.50)
[2022-10-18 08:35] LABS: Erythrocyte Sedimentation Rate 2 MM/HR (0-15)
== END 2022-10-18 06:48 | disposition home or self-care (01) ==
LOC: HO.LAB 06:47
PROVIDERS: Nurse Practitioner Family; PCP Internal Medicine; Visit Provider Internal Medicine
DX: M79.641 Pain in right hand (principal); M79.642 Pain in left hand; E11.9 Type 2 diabetes mellitus without complications; E78.00 Pure hypercholesterolemia, unspecified; J02.9 Acute pharyngitis, unspecified
CPT/HCPCS: 36415; 80053; 83036; 85652; 86140

== ENCOUNTER 2023-02-15 08:22 | Outpatient (REF) | payer OTHER, SELFPAY ==
--- NOTE | ~2023-02-15 | XR_ITS ---
EXAMINATION: XR HAND, RIGHT CLINICAL INFORMATION: Pain COMPARISON: None available. TECHNIQUE: Four views of the right hand. FINDINGS: Bones are normal anatomic alignment with no acute fracture or dislocation seen. I do not appreciate any bony destructive lesions or erosions. Mild degenerative changes to the interphalangeal joints. Surrounding soft tissues grossly unremarkable. No radiopaque foreign body or soft tissue gas XR/XR hand RT min 3V IMPRESSION: Mild degenerative changes but no acute bony abnormality.
--- NOTE | ~2023-02-15 | XR_ITS ---
EXAMINATION: XR LUMBOSACRAL SPINE CLINICAL INFORMATION: Low back pain COMPARISON: None available. TECHNIQUE: Three views of the lumbosacral spine. FINDINGS: Bones are normal anatomic alignment with no acute fracture or spondylolisthesis. Vertebral body heights and disc heights are preserved. Mild anterior osteophyte formation is seen with mild sclerotic degenerative changes in the posterior elements of the lower lumbar spine. Unremarkable bowel gas pattern. Mild vascular calcification XR/XR lumbar spine 2-3V IMPRESSION: Mild degenerative changes but no acute fracture or spondylolisthesis.
[2023-02-15 09:29] LABS: Estimated Average Glucose 160 mg/dL; Hemoglobin A1c % 7.2 %
[2023-02-15 10:01] LABS: Alanine Aminotransferase 37 U/L (0-40); Albumin Level 4.3 g/dL (3.5-5.0); Alkaline Phosphatase 96 U/L (39-117); Anion Gap 16 (12-20); Aspartate Amino Transferase 25 U/L (5-37); Bilirubin Total 0.4 mg/dL (0.0-1.0); Blood Urea Nitrogen 17 mg/dL (9-16); Calcium 9.7 mg/dL (8.4-10.2); Carbon Dioxide 21 mmol/L (22-29); Chloride 106 mmol/L (96-108); Estimated Glomerular Filt Rate > 60; Glucose Random 181 mg/dL (60-115); Potassium 4.4 mmol/L (3.3-5.1); Sodium 139 mmol/L (135-145); Total Protein 7.5 g/dL (6.5-8.0)
== END 2023-02-15 08:23 | disposition home or self-care (01) ==
LOC: HO.XRAY 08:22
PROVIDERS: PCP Internal Medicine; Visit Provider Internal Medicine
DX: M54.50 Low back pain, unspecified (principal); M79.641 Pain in right hand; E11.65 Type 2 diabetes mellitus with hyperglycemia; I10 Essential (primary) hypertension; R21 Rash and other nonspecific skin eruption
CPT/HCPCS: 36415; 72100; 73130; 80053; 83036

== ENCOUNTER 2023-04-12 13:33 | Outpatient (AMB) | payer OTHER, SELFPAY ==
[2023-04-12 13:36] VITALS: BP 126/64; PULSE 62; TEMP 36.7; O2SAT 96; BMI 29.1
--- NOTE | 2023-04-12 13:36 | A.OFFVIS_ITS ---
Intake Vital Signs 04/12/23 13:36 Height 5 ft 8 in Weight 191 lb 9.307 oz BMI 29.1 BP 126/64 Blood Pressure Location Rt brachial Position Sitting Pulse 62 Pulse Source Pulse Oximeter Temp 98.1 F Temp Source Skin Pulse Oximetry (%) 96 Intake Visit Reasons: osteoarthritis Intake Note: Pt seen today for OA follow up. 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 Front End Wheel Loader Operator Language: Universal Grinder Set Up Operator Name: Sara [id number] Accompanied by: Self / Same As Patient Allergies Penicillins [PENICILLINS] Allergy (Intermediate, Verified 04/12/23 13:40) ITCHING,SWELLING penicillin V Allergy (Unknown, Verified 04/12/23 13:40) rash & angioedema insulin glargine Adverse Reaction (Mild, Verified 04/12/23 13:40) adverse reaction- burning at injection site rosuvastatin [Crestor] Adverse Reaction (Unknown, Verified 04/12/23 13:40) myalgias Medication List - Last Reconciled 04/12/23 by Esme Blevins MD acetaminophen ER 650 mg PO Q8H aripiprazole 20 mg PO BEDTIME atorvastatin 80 mg PO BEDTIME 30 days betamethasone dipropionate 0.05% topical blood-glucose meter (FreeStyle Lite Meter kit) As directed buspirone 5 mg PO TID cholecalciferol (vitamin D3) 25 mcg PO DAILY 30 days clonazepam 1 mg PO DAILY PRN diphenhydramine HCl 50 mg PO BEDTIME doxazosin 1 mg PO DAILY empagliflozin-metformin 12.5-1,000 mg ER (Synjardy XR) 1 tab PO BID gabapentin 100 mg PO TID hydroxyzine HCl 10 mg PO TID PRN ibuprofen 600 mg PO TID PRN insulin aspart U-100 (Novolog FlexPen U-100 Insulin aspart) 10 - 16 units (0.1 - 0.16 mL) subcut TID 30 days insulin degludec (Tresiba FlexTouch U-100 insulin) 37 units (0.37 mL) subcut BEDTIME lidocaine 5% 1 patch topical DAILY lisinopril 10 mg PO DAILY 30 days omega-3 fatty acids 2,000 mg (2 x 1,000 mg) PO BID 30 days omeprazole 20 mg PO DAILY pen needle, diabetic (BD Rachel 2nd Gen Pen Needle) 5 times a day sertraline 200 mg PO DAILY tacrolimus 0.1% topical trazodone 100 mg PO BEDTIME PRN HPI HPI Comments History of Present Illness Details This is a 57-year-old male with generalized osteoarthritis who presents for follow-up. Patient had trigger finger release surgery for the left index and left middle fingers last year with resolution of trigger finger however over the last 3-4 months he has been having right ring her finger triggering, usually worse in the morning. It is painful. He states that occupational therapy caused more pain in the past. States that he gets some knee pain, usually worse with walking but believes that it is going to be worse in winter time. [facility] Medical History Colon cancer screening Depression Diabetes type 2, uncontrolled Diverticulosis Dyslipidemia Hemorrhoids History of pancreatitis Hypertension intermediate (current) use of insulin Non-proliferative diabetic retinopathy, mild, both eyes Obesity due to excess calories Osteoarthritis of right knee Overweight (BMI 25.0-29.9) Vitamin D deficiency Surgical History H/O hand surgery History of colonoscopy (~2020) Hx of appendectomy Hx of colonoscopy Hx of inguinal hernia repair Hx of knee surgery Family History Father Diabetes Prostate cancer Mother Diabetes Social History Household Members: Spouse and Children Alcohol intake: former Patient Tobacco Use Status: Former Tobacco user Quit Date: Quit one and a half years ago. 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 Review of Systems [facility] [place] Reports arthralgias, Reports limited range of motion and Reports stiffness Physical Exam Vital Signs: Last Vital Signs Temp 98.1 F 04/12/23 13:36 Pulse 62 04/12/23 13:36 BP 126/64 04/12/23 13:36 Pulse Ox 96 04/12/23 13:36 BMI result Body Mass Index 29.1 Const General: cooperative, healthy appearing and comfortable Nutritional Appearance: overweight Orientation/consciousness: patient oriented x3 Limitations: no limitations HEENT Head: Yes normocephalic and Yes atraumatic Mouth: moist mucous membranes Resp Effort & Inspection: normal respiratory effort and able to speak in complete sentences Auscultation: clear to auscultation bilaterally Cardio Rate: regular rate Rhythm: regular rhythm Neuro General: patient oriented x3 Extrem Other: Triggering of left ring finger Nontender wrists and no pain with full flexion extension Few tender MCPs bilaterally without swelling Few tender PIPs and DIPs bilaterally Bilateral Yuni's and Heberden's nodes Normal range of motion of both shoulders Right knee pain with flexion Results Reviewed Results Reviewed: Laboratory Tests 07/20/22 07/20/22 07/20/22 08:56 08:56 08:56 01/15/2022 EXAMINATION: XR SHOULDER, RIGHT CLINICAL INFORMATION: Chronic right shoulder pain? COMPARISON: None? TECHNIQUE: AP external rotation, Grashey, scapular Y, and axillary views of the right shoulder. FINDINGS: No fracture or dislocation. The glenohumeral joint is well aligned. The joint space is mildly narrowed with small osteophytes. Mild hypertrophic degenerative change of the acromioclavicular joint. The visualized lung is clear. The visualized ribs are intact.? XR/XR shoulder RT min 2V IMPRESSION: Mild degenerative changes at the right shoulder. 01/15/2022 EXAMINATION: XR KNEE, RIGHT? CLINICAL INFORMATION: Chronic right knee pain? COMPARISON: 03/13/2019? TECHNIQUE: Four views of the right knee. This includes upright AP and tunnel views. FINDINGS: No fracture or subluxation. Mild medial compartment joint space narrowing, increased from prior. Small marginal osteophytes in all compartments. No joint effusion. The soft tissues appear unremarkable. XR/XR knee RT 3V IMPRESSION: Mild tricompartmental degenerative change, somewhat progressed since 2019. 09/04/2020 EXAMINATION: XR HAND, LEFT CLINICAL INFORMATION: Trigger finger, left middle finger.? COMPARISON: None? TECHNIQUE: PA, lateral, and oblique views of the left hand. FINDINGS: There is no fracture or dislocation. Alignment is anatomic. Joint spaces are maintained. Small osteophytes at the first interphalangeal joint. Mild degenerative changes along the radial aspect of the wrist. Unremarkable appearance of the third digit. The soft tissues are unremarkable.? XR/XR hand LT min 3V IMPRESSION: Mild degenerative changes as above. Unremarkable appearance of the third digit. Assessment & Plan Assessment & Plan (1) Trigger finger, right ring finger: Code(s): M65.341 - Trigger finger, right ring finger Plan: This is a 57-year-old male with generalized osteoarthritis who presents for follow-up. He had trigger finger release of left index and left middle finger last year with resolution, over the last 3-4 months he has been having triggering of his right ring finger. Patient stated that occupational therapy caused more pain in the past. Advised patient to call his hand surgeon to make an appointment. (2) Osteoarthritis of right knee: Code(s): M17.11 - Unilateral primary osteoarthritis, right knee Qualifiers: Osteoarthritis type: primary Qualified Code(s): M17.11 - Unilateral primary osteoarthritis, right knee Plan: States that he has right knee pain right now but it is tolerable, states that the pain is likely going to be worse in winter time. Will schedule a follow-up appointment in 3 months and will consider a right knee injection. Advised patient to control his blood sugar and let us know what his blood sugar is on the day of the injection Plan I spent 26 minutes reviewing patient's chart, evaluating patient, counseling patient and documenting in the chart Coding Level of Care Code Est Pt Level 4 (06901) Diagnoses Trigger finger, right ring finger M65.341 Osteoarthritis of right knee M17.11 Osteoarthritis type: primary
== END 2023-04-12 14:02 | disposition home or self-care (01) ==
PROVIDERS: PCP Internal Medicine; Visit Provider Student in an Organized Health Care Education/Training Program
DX: M65.341 Trigger finger, right ring finger (principal); M17.11 Unilateral primary osteoarthritis, right knee
CPT/HCPCS: 99214

== ENCOUNTER → 2023-04-12 13:33 | Outpatient (BNVA) | payer OTHER, SELFPAY | PROVIDERS: PCP Internal Medicine; Visit Provider Student in an Organized Health Care Education/Training Program | DX: M65.341 Trigger finger, right ring finger (principal); M17.11 Unilateral primary osteoarthritis, right knee | CPT/HCPCS: 99212 ==

== ENCOUNTER 2023-05-14 09:03 | Outpatient (REF) | payer OTHER, SELFPAY | END 2023-05-14 09:04 | disposition home or self-care (01) | LOC: HO.LAB 09:03 | PROVIDERS: PCP Internal Medicine; Visit Provider Internal Medicine | DX: Z00.01 Encounter for general adult medical examination with abnormal findings (principal); E11.65 Type 2 diabetes mellitus with hyperglycemia; E78.1 Pure hyperglyceridemia; F17.201 Nicotine dependence, unspecified, in remission; I10 Essential (primary) hypertension; N40.0 Benign prostatic hyperplasia without lower urinary tract symptoms; R21 Rash and other nonspecific skin eruption; Z12.5 Encounter for screening for malignant neoplasm of prostate | CPT/HCPCS: 36415; 80053; 80061; 82043; 82570; 83036; 84153; 85025 ==

== ENCOUNTER 2023-06-22 14:02 | Outpatient (AMB) | payer OTHER, SELFPAY ==
--- NOTE | 2023-06-22 14:08 | A.OFFVIS_ITS ---
Intake Vital Signs 06/22/23 14:11 Height 5 ft 8 in Weight 191 lb BMI 29.0 Intake Visit Reasons: New Prob- RT Ring Trigger Finger Intake Note: Roger 58 yr old male who is right hand dominant, presents his right ring finger, states his finger is locking and has worsen in the last 4-5 months. He is S/P Left IF & MF Trig Rel. 06/07/22 AR and would like to have surgery for his right ring finger as well. Allergies Penicillins [PENICILLINS] Allergy (Intermediate, Verified 06/22/23 14:10) ITCHING,SWELLING penicillin V Allergy (Unknown, Verified 06/22/23 14:10) rash & angioedema insulin glargine Adverse Reaction (Mild, Verified 06/22/23 14:10) adverse reaction- burning at injection site rosuvastatin [Crestor] Adverse Reaction (Unknown, Verified 06/22/23 14:10) myalgias HPI New Prob- RT Ring Trigger Finger HPI Details Roger is a 58 year old right hand dominant man who presents with complaints of a right ring trigger finger. He complains of ~4 months painful locking and catching of the right ring finger. He has a hx of left index & middle trigger release last year with excellent results. He would like to sign up for surgery. 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 Review of Systems Const All systems reviewed & are unremarkable except as noted in HPI and below Physical Exam Vital Signs: BMI result Body Mass Index 29.0 Const General: no acute distress and alert Orientation/consciousness: patient oriented x3 Neuro General: patient oriented x3 Extrem Other: Evaluation of Right Upper Extremity: The patient is alert, oriented, and in no acute distress Neuro: Median, Ulnar, Radial nerves motor and sensory intact and sensation is normal to the tips of all digits Vascular: Cap refill brisk ROM: He can make a fist and extend all his digits Visible and palpable locking and catching of the right ring finger Tender over the a1 cornelius of the ring finger Psych Appearance: grossly normal Affect: normal affect Attitude: cooperative Assessment & Plan Assessment & Plan (1) Trigger finger, right ring finger: Code(s): M65.341 - Trigger finger, right ring finger (2) Diabetes mellitus: Code(s): E11.9 - Type 2 diabetes mellitus without complications Plan Assessment & plan: 1. Right ring finger trigger finger I educated him about this condition I discussed operative and non-operative treatment options The patient would like to proceed with surgery The risks and benefits of operative treatment were discussed with the patient and the patient wishes to proceed with surgery. These risks include, but are not limited to risk of damage to blood vessels, nerves, tendons, infection, recurrence, incomplete relief of preoperative symptoms, persistent pain, possible need for further surgery and the risks associated with regional blocks and anesthesia. The plan is to take the patient to the operating room sometime in the next few weeks for the following procedures: 1. Right ring finger trigger release, under local All of the preoperative paperwork including the consent was filled out today. All the patient's questions were answered. The patient understands that they will be contacted by our outpatient scheduler soon to schedule this procedure He denies blood thinners, asthma, heart, lung, kidney issues He is a Diabetic, his most recent HgA1c was 7.8% on 05/14/23 ? 2. Left middle trigger finger, S/P release DOS: 06/07/23 ? 3. Left index trigger finger, S/P release DOS: 06/07/23 ? With good resolution of symptoms. He is happy with the results of these surgeries. ? Scribed for Floresita Rowe MD by Gibran Kirby, director biomedical engineering, on 06/22/23 at 2:15 PM, EST. Coding Level of Care Code Est Pt Level 4 (71548) Diagnoses Trigger finger, right ring finger M65.341 Diabetes mellitus E11.9
[2023-06-22 14:11] VITALS: BMI 29.0
== END 2023-06-22 14:15 | disposition home or self-care (01) ==
PROVIDERS: PCP Internal Medicine; Visit Provider Orthopaedic Surgery
DX: M65.341 Trigger finger, right ring finger (principal)
CPT/HCPCS: 99214

== ENCOUNTER → 2023-06-22 14:02 | Outpatient (BNVA) | payer OTHER, SELFPAY | PROVIDERS: PCP Internal Medicine; Visit Provider Orthopaedic Surgery | DX: M65.341 Trigger finger, right ring finger (principal); E11.9 Type 2 diabetes mellitus without complications | CPT/HCPCS: 99212 ==

== ENCOUNTER 2023-07-14 14:11 | Outpatient (AMB) | payer OTHER, SELFPAY ==
[2023-07-14 14:16] VITALS: BP 124/76; PULSE 60; TEMP 36.1; O2SAT 97; BMI 28.8
--- NOTE | 2023-07-14 14:16 | MHC.OFFVIS ---
Intake Vital Signs 07/14/23 14:16 Height 5 ft 8 in Weight 189 lb 9.561 oz BMI 28.8 BP 124/76 Blood Pressure Location Rt brachial Position Sitting Pulse 60 Pulse Source Pulse Oximeter Temp 97 F Temp Source Skin Pulse Oximetry (%) 97 Oxygen Delivery Method Room Air Intake Visit Reasons: OA/inj Intake Note: Pt last seen 04/12/23, presents today for follow up on knee pain. Requesting right shoulder cortisone injection. Rn Visiting Required: Yes Rn Visiting Language: Women'S Apparel Salesperson Name: Manohar [id number] Information Interpreted: clinical only Accompanied by: Self / Same As Patient Allergies Penicillins [PENICILLINS] Allergy (Intermediate, Verified 07/14/23 14:20) ITCHING,SWELLING penicillin V Allergy (Unknown, Verified 07/14/23 14:20) rash & angioedema insulin glargine Adverse Reaction (Mild, Verified 07/14/23 14:20) adverse reaction- burning at injection site rosuvastatin [Crestor] Adverse Reaction (Unknown, Verified 07/14/23 14:20) myalgias Medication List - Last Reconciled 07/14/23 by Esme Blevins MD acetaminophen ER 650 mg PO Q8H aripiprazole 20 mg PO BEDTIME aspirin 81 mg PO DAILY atorvastatin 80 mg PO BEDTIME 30 days betamethasone dipropionate 0.05% topical blood-glucose meter (FreeStyle Lite Meter kit) As directed buspirone 5 mg PO TID cholecalciferol (vitamin D3) 25 mcg PO DAILY 30 days cholecalciferol (vitamin D3) 25 mcg PO DAILY clonazepam 1 mg PO DAILY PRN diphenhydramine HCl 50 mg PO BEDTIME doxazosin 1 mg PO DAILY empagliflozin-metformin 12.5-1,000 mg ER (Synjardy XR) 1 tab PO BID gabapentin 100 mg PO TID hydroxyzine HCl 10 mg PO TID PRN ibuprofen 600 mg PO TID PRN insulin aspart U-100 (Novolog FlexPen U-100 Insulin aspart) 10 - 16 units (0.1 - 0.16 mL) subcut TID 30 days insulin degludec (Tresiba FlexTouch U-100 insulin) 37 units (0.37 mL) subcut BEDTIME lidocaine 5% 1 patch topical DAILY lisinopril 10 mg PO DAILY 30 days meclizine mg PO BID omega-3 fatty acids 2,000 mg (2 x 1,000 mg) PO BID 30 days omeprazole 20 mg PO DAILY ondansetron mg PO pen needle, diabetic (BD Rachel 2nd Gen Pen Needle) 5 times a day sertraline 200 mg PO DAILY tacrolimus 0.1% topical trazodone 100 mg PO BEDTIME PRN HPI HPI Comments History of Present Illness Details This is a 58-year-old male with generalized osteoarthritis returns for follow-up. Today he is here requesting right shoulder injection. States that he has arthritis and tendinitis in his right shoulder. He received a steroid injection by Orthopedics 02/2022 with relief. 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 Review of Systems [facility] Reports arthralgias, Reports limited range of motion and Reports stiffness Physical Exam Vital Signs: Last Vital Signs Temp 97 F 07/14/23 14:16 Pulse 60 07/14/23 14:16 BP 124/76 07/14/23 14:16 Pulse Ox 97 07/14/23 14:16 Oxygen Delivery Method Room Air 07/14/23 14:16 BMI result Body Mass Index 28.8 Const General: cooperative, healthy appearing and comfortable Nutritional Appearance: overweight Limitations: no limitations HEENT Head: Yes normocephalic and Yes atraumatic Resp Effort & Inspection: normal respiratory effort and able to speak in complete sentences Extrem Other: Limited range of motion of right shoulder Positive empty can test on the right Office Procedures Joint Injection/Drain Joint Injection/Drain Primary Site: right shoulder Prep: site was prepped using sterile technique and ethochloride spray was applied Injected: 40 mg of and other (2 mL of 1% lidocaine) Approach Used: posterolateral Procedure: The patient tolerated the procedure well Coding Details: The right shoulder was prepped ChloraPrep and alcohol. The subacromial space was injected with 40 mg of triamcinolone and 2 cc of lidocaine. Patient tolerated the procedure well no apparent immediate side effects. 60625 - Large joint Procedure code (CPT) selection complete Results Reviewed Results Reviewed: Laboratory Tests 07/20/22 07/20/22 07/20/22 08:56 08:56 08:56 01/15/2022 EXAMINATION: XR SHOULDER, RIGHT CLINICAL INFORMATION: Chronic right shoulder pain? COMPARISON: None? TECHNIQUE: AP external rotation, Grashey, scapular Y, and axillary views of the right shoulder. FINDINGS: No fracture or dislocation. The glenohumeral joint is well aligned. The joint space is mildly narrowed with small osteophytes. Mild hypertrophic degenerative change of the acromioclavicular joint. The visualized lung is clear. The visualized ribs are intact.? XR/XR shoulder RT min 2V IMPRESSION: Mild degenerative changes at the right shoulder. 01/15/2022 EXAMINATION: XR KNEE, RIGHT? CLINICAL INFORMATION: Chronic right knee pain? COMPARISON: 03/13/2019? TECHNIQUE: Four views of the right knee. This includes upright AP and tunnel views. FINDINGS: No fracture or subluxation. Mild medial compartment joint space narrowing, increased from prior. Small marginal osteophytes in all compartments. No joint effusion. The soft tissues appear unremarkable. XR/XR knee RT 3V IMPRESSION: Mild tricompartmental degenerative change, somewhat progressed since 2019. 09/04/2020 EXAMINATION: XR HAND, LEFT CLINICAL INFORMATION: Trigger finger, left middle finger.? COMPARISON: None? TECHNIQUE: PA, lateral, and oblique views of the left hand. FINDINGS: There is no fracture or dislocation. Alignment is anatomic. Joint spaces are maintained. Small osteophytes at the first interphalangeal joint. Mild degenerative changes along the radial aspect of the wrist. Unremarkable appearance of the third digit. The soft tissues are unremarkable.? XR/XR hand LT min 3V IMPRESSION: Mild degenerative changes as above. Unremarkable appearance of the third digit. Assessment & Plan Assessment & Plan (1) Osteoarthritis of right shoulder: Code(s): M19.011 - Primary osteoarthritis, right shoulder Qualifiers: Osteoarthritis type: primary Qualified Code(s): M19.011 - Primary osteoarthritis, right shoulder Plan: 58-year-old male with generalized osteoarthritis returns for follow-up. Today he is in clinic requesting right shoulder injection. He states that he has right shoulder arthritis and tendinitis. He received a steroid injection by Orthopedics 02/2022 with improvement. His blood sugar in clinic today is 130. With patient's consent, right shoulder was injected with Kenalog today. Advised patient to check his blood sugar 3-4 times a day in the coming few days and increase NovoLog as needed according to his sliding scale. Follow-up as needed Plan I spent 17 minutes reviewing patient's chart, evaluating patient, counseling patient and documenting in the chart Orders: Orders AMB Joint Injection/Aspiration Today M19.011 - Primary osteoarthritis, right shoulder Coding Level of Care Code Est Pt Level 3 (07785) Diagnoses Primary osteoarthritis of right shoulder M19.011 Osteoarthritis type: primary CPT Codes Coding - 35527 Large joint: 51977 - Large joint ([id number])
== END 2023-07-14 15:06 | disposition home or self-care (01) ==
PROVIDERS: PCP Internal Medicine; Visit Provider Student in an Organized Health Care Education/Training Program
DX: M19.011 Primary osteoarthritis, right shoulder (principal)
CPT/HCPCS: 20610; 99213

== ENCOUNTER → 2023-07-14 14:11 | Outpatient (BNVA) | payer OTHER, SELFPAY | PROVIDERS: PCP Internal Medicine; Visit Provider Student in an Organized Health Care Education/Training Program | DX: M19.011 Primary osteoarthritis, right shoulder (principal) | CPT/HCPCS: 20610; 99212 ==

== ENCOUNTER 2023-08-17 08:29 | Outpatient (REF) | payer OTHER, SELFPAY ==
[2023-08-17 10:10] LABS: Estimated Average Glucose 183 mg/dL
[2023-08-17 10:42] LABS: Alanine Aminotransferase 32 U/L (0-40); Albumin Level 4.3 g/dL (3.5-5.0); Alkaline Phosphatase 83 U/L (39-117); Anion Gap 15 (12-20); Aspartate Amino Transferase 23 U/L (5-37); Bilirubin Total 0.7 mg/dL (0.0-1.0); Blood Urea Nitrogen 24 mg/dL (9-16); Calcium 9.3 mg/dL (8.4-10.2); Carbon Dioxide 23 mmol/L (22-29); Chloride 108 mmol/L (96-108); Estimated Glomerular Filt Rate > 60; Glucose Random 154 mg/dL (60-115); Potassium 4.6 mmol/L (3.3-5.1); Sodium 141 mmol/L (135-145); Total Protein 6.7 g/dL (6.5-8.0)
== END 2023-08-17 08:30 | disposition home or self-care (01) ==
LOC: HO.LAB 08:29
PROVIDERS: PCP Internal Medicine; Visit Provider Internal Medicine
DX: E11.65 Type 2 diabetes mellitus with hyperglycemia (principal); E78.2 Mixed hyperlipidemia; H81.01 Meniere's disease, right ear; I10 Essential (primary) hypertension
CPT/HCPCS: 36415; 80053; 83036

== ENCOUNTER 2023-11-08 10:48 | Outpatient (AMB) | payer OTHER, SELFPAY ==
[2023-11-08 11:43] VITALS: BMI 28.7
--- NOTE | 2023-11-08 11:43 | A.OFFVIS_ITS ---
Intake Vital Signs 11/08/23 11:43 Height 5 ft 8 in Weight 189 lb BMI 28.7 Intake Visit Reasons: ov-Rt RF Trigger Release 09/22/22 AR Intake Note: Roger 58 yr old male presents today for his S/P Left IF & MF Trig Rel. 06/07/22 AR. States his right hand ring finger is locking and would like to discuss surgery once again. Allergies Penicillins [PENICILLINS] Allergy (Intermediate, Verified 11/08/23 11:44) ITCHING,SWELLING penicillin V Allergy (Unknown, Verified 11/08/23 11:44) rash & angioedema insulin glargine Adverse Reaction (Mild, Verified 11/08/23 11:44) adverse reaction- burning at injection site rosuvastatin [Crestor] Adverse Reaction (Unknown, Verified 11/08/23 11:44) myalgias PFSH Medical History Osteoarthritis of right knee Obesity due to excess calories Hemorrhoids Diverticulosis Colon cancer screening Non-proliferative diabetic retinopathy, mild, both eyes Diabetes type 2, uncontrolled Depression History of pancreatitis Overweight (BMI 25.0-29.9) Vitamin D deficiency 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
--- NOTE | 2023-11-08 11:43 | MHC.OFFVIS ---
Intake Vital Signs 11/08/23 11:43 Height 5 ft 8 in Weight 189 lb BMI 28.7 Intake Visit Reasons: ov-Rt RF Trigger Release 09/22/22 AR Allergies Penicillins [PENICILLINS] Allergy (Intermediate, Verified 11/08/23 11:44) ITCHING,SWELLING penicillin V Allergy (Unknown, Verified 11/08/23 11:44) rash & angioedema insulin glargine Adverse Reaction (Mild, Verified 11/08/23 11:44) adverse reaction- burning at injection site rosuvastatin [Crestor] Adverse Reaction (Unknown, Verified 11/08/23 11:44) myalgias HPI ov-Rt RF Trigger Release 09/22/22 AR HPI Details Roger is a 58 year old right hand dominant Maltese speaking man who returns with complaints of a right ring trigger finger. He was initially scheduled for a trigger finger release on 09/22/23, but he says he forgot and did not attend surgery. He continues to have painful locking & catching of the right ring finger. He has a hx of left index & middle trigger release on 06/07/22 with excellent results. He would like to sign up for surgery. [facility] Medical History Osteoarthritis of right knee Obesity due to excess calories Hemorrhoids Diverticulosis Colon cancer screening Non-proliferative diabetic retinopathy, mild, both eyes Diabetes type 2, uncontrolled Depression History of pancreatitis Overweight (BMI 25.0-29.9) Vitamin D deficiency Hypertension custodial (current) use of insulin Dyslipidemia Surgical History H/O hand surgery History of colonoscopy (~2020) Hx of colonoscopy Hx of appendectomy Hx of inguinal hernia repair Hx of knee surgery Family History Father Diabetes Prostate cancer Mother Diabetes Social History Household Members: Spouse and Children Alcohol intake: former Patient Tobacco Use Status: Former Tobacco user Quit Date: Quit one and a half years ago. 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 Physical Exam Vital Signs: BMI result Body Mass Index 28.7 Const General: no acute distress and alert Orientation/consciousness: patient oriented x3 Neuro General: patient oriented x3 Extrem Other: Evaluation of Right Upper Extremity: The patient is alert, oriented, and in no acute distress Neuro: Median, Ulnar, Radial nerves motor and sensory intact and sensation is normal to the tips of all digits Vascular: Cap refill brisk ROM: He can make a fist and extend all his digits Visible and palpable locking and catching of the right ring finger Tender over the a1 cornelius of the ring finger Psych Appearance: grossly normal Affect: normal affect Attitude: cooperative Assessment & Plan Assessment & Plan (1) Trigger finger, right ring finger: Code(s): M65.341 - Trigger finger, right ring finger (2) Diabetes mellitus: Code(s): E11.9 - Type 2 diabetes mellitus without complications Plan Assessment & plan: 1. Right ring finger trigger finger I educated him about this condition I discussed operative and non-operative treatment options The patient would like to proceed with surgery, however he has some projects to complete at home and was thinking about surgery sometime in March He initially was scheduled for a trigger finger release on 09/22/23, but he no-showed this surgery. He will follow up in 2 months to discuss surgery He is a Diabetic, his most recent HgA1c was 8.0% on 08/17/23 ? 2. Left middle trigger finger, S/P release DOS: 06/07/23 ? 3. Left index trigger finger, S/P release DOS: 06/07/23 ? With good resolution of symptoms. He is happy with the results of these surgeries. ? Scribed for Floresita Rowe MD by Gibran Kirby, biomedical instrument technician, on 11/08/23 at 11:45 AM, EST. Coding Level of Care Code Est Pt Level 3 (71451) Diagnoses Trigger finger, right ring finger M65.341 Diabetes mellitus E11.9
== END 2023-11-08 11:53 | disposition home or self-care (01) ==
PROVIDERS: PCP Internal Medicine; Visit Provider Orthopaedic Surgery
DX: M65.341 Trigger finger, right ring finger (principal); E11.9 Type 2 diabetes mellitus without complications
CPT/HCPCS: 99213

== ENCOUNTER → 2023-11-08 10:48 | Outpatient (BNVA) | payer OTHER, SELFPAY | PROVIDERS: PCP Internal Medicine; Visit Provider Orthopaedic Surgery | DX: M65.341 Trigger finger, right ring finger (principal); E11.9 Type 2 diabetes mellitus without complications | CPT/HCPCS: 99212 ==

== ENCOUNTER 2023-11-16 09:23 | Outpatient (REF) | payer OTHER, SELFPAY ==
[2023-11-16 11:35] LABS: Estimated Average Glucose 163 mg/dL; Hemoglobin A1c % 7.3 % (<6.0)
[2023-11-16 11:54] LABS: Alanine Aminotransferase 28 U/L (0-40); Albumin Level 4.4 g/dL (3.5-5.0); Alkaline Phosphatase 107 U/L (39-117); Anion Gap 14 (12-20); Aspartate Amino Transferase 19 U/L (5-37); Bilirubin Total 0.6 mg/dL (0.0-1.0); Blood Urea Nitrogen 25 mg/dL (9-16); Calcium 9.6 mg/dL (8.4-10.2); Carbon Dioxide 23 mmol/L (22-29); Chloride 108 mmol/L (96-108); Estimated Glomerular Filt Rate > 60; Glucose Random 185 mg/dL (60-115); Potassium 4.4 mmol/L (3.3-5.1); Sodium 141 mmol/L (135-145); Total Protein 7.1 g/dL (6.5-8.0)
== END 2023-11-16 09:24 | disposition home or self-care (01) ==
LOC: HO.LAB 09:23
PROVIDERS: PCP Internal Medicine; Visit Provider Internal Medicine
DX: E11.65 Type 2 diabetes mellitus with hyperglycemia (principal); F17.201 Nicotine dependence, unspecified, in remission; I10 Essential (primary) hypertension; L30.4 Erythema intertrigo
CPT/HCPCS: 36415; 80053; 83036

== ENCOUNTER 2023-11-24 12:02 | Outpatient (AMB) | payer OTHER, SELFPAY ==
[2023-11-24 13:00] VITALS: BP 114/62; PULSE 82; O2SAT 94; BMI 29.9
--- NOTE | 2023-11-24 13:00 | A.OFFVIS_ITS ---
Vital Signs 11/24/23 13:00 Height 5 ft 8 in Weight 196 lb 13.965 oz BMI 29.9 BP 114/62 Blood Pressure Location Rt brachial Position Sitting Pulse 82 Pulse Source Pulse Oximeter Pulse Oximetry (%) 94 Oxygen Delivery Method Room Air Intake Visit Reasons: Pain on right shoulder Intake Note: Pt presents today for right shoulder pain. Cortisone injection in July. Pain came back about 2 months ago. Surgical Services Tech Required: Yes Surgical Services Tech Name: Lori [email or web address] Information Interpreted: clinical only Accompanied by: Self / Same As Patient Allergies Penicillins [PENICILLINS] Allergy (Intermediate, Verified 11/24/23 13:05) ITCHING,SWELLING penicillin V Allergy (Unknown, Verified 11/24/23 13:05) rash & angioedema insulin glargine Adverse Reaction (Mild, Verified 11/24/23 13:05) adverse reaction- burning at injection site rosuvastatin [Crestor] Adverse Reaction (Unknown, Verified 11/24/23 13:05) myalgias Medication List - Last Reconciled 11/24/23 by Esme Blevins MD acetaminophen ER 650 mg PO Q8H aripiprazole 20 mg PO BEDTIME aspirin 81 mg PO DAILY atorvastatin 80 mg PO BEDTIME 30 days betamethasone dipropionate 0.05% topical blood-glucose meter (FreeStyle Lite Meter kit) As directed buspirone 5 mg PO TID cholecalciferol (vitamin D3) 25 mcg PO DAILY 30 days cholecalciferol (vitamin D3) 25 mcg PO DAILY clonazepam 1 mg PO DAILY PRN diphenhydramine HCl 50 mg PO BEDTIME doxazosin 1 mg PO DAILY empagliflozin-metformin 12.5-1,000 mg ER (Synjardy XR) 1 tab PO BID gabapentin 100 mg PO TID hydroxyzine HCl 10 mg PO TID PRN ibuprofen 600 mg PO TID PRN insulin aspart U-100 (Novolog FlexPen U-100 Insulin aspart) 10 - 16 units (0.1 - 0.16 mL) subcut TID 30 days insulin degludec (Tresiba FlexTouch U-100 insulin) 37 units (0.37 mL) subcut B EDTIME lidocaine 5% 1 patch topical DAILY lisinopril 10 mg PO DAILY 30 days meclizine mg PO BID omega-3 fatty acids 2,000 mg (2 x 1,000 mg) PO BID 30 days omeprazole 20 mg PO DAILY ondansetron mg PO pen needle, diabetic (BD Rachel 2nd Gen Pen Needle) 5 times a day sertraline 200 mg PO DAILY tacrolimus 0.1% topical trazodone 100 mg PO BEDTIME PRN HPI Comments Details: This is a 58-year-old male with generalized osteoarthritis returns for follow- up. Last visit right shoulder was injected with Kenalog. States that the injection helped him for 1.5-2 months. States that he gets shoulder pain with any range of motion. States that he ruptured a tendon on the anterior aspect of his right shoulder many years ago when his pit bull pulled his leash. States that after last injection, his blood sugar was elevated for 4-5 days. States that recently his blood sugar in the morning is usually 120-160 in the morning. He would like to try another injection [facility] Medical History Osteoarthritis of right knee Obesity due to excess calories Hemorrhoids Diverticulosis Colon cancer screening Non-proliferative diabetic retinopathy, mild, both eyes Diabetes type 2, uncontrolled Depression History of pancreatitis Overweight (BMI 25.0-29.9) Vitamin D deficiency Hypertension custodial (current) use of insulin Dyslipidemia Surgical History H/O hand surgery History of colonoscopy (~2020) Hx of colonoscopy Hx of appendectomy Hx of inguinal hernia repair Hx of knee surgery Family History Father Diabetes Prostate cancer Mother Diabetes Social History Household Members: Spouse and Children Alcohol intake: former Patient Tobacco Use Status: Former Tobacco user Quit Date: Quit one and a half years ago. 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 Review of Systems [employer] Reports arthralgias, Reports limited range of motion and Reports stiffness Physical Exam Vital Signs: Last Vital Signs Pulse 82 11/24/23 13:00 BP 114/62 11/24/23 13:00 Pulse Ox 94 11/24/23 13:00 Oxygen Delivery Method Room Air 11/24/23 13:00 BMI result Body Mass Index 29.9 Const General: cooperative, healthy appearing and comfortable Nutritional Appearance: overweight Limitations: no limitations HEENT Head: Yes normocephalic and Yes atraumatic Resp Effort & Inspection: normal respiratory effort and able to speak in complete sentences Extrem Other: Limited range of motion of right shoulder Positive empty can test on the right Office Procedures Joint Injection/Drain Joint Injection/Drain Primary Site: right shoulder Prep: site was prepped using sterile technique and ethochloride spray was applied Injected: 40 mg of, Kenalog and other (2 mL of 1% lidocaine) Approach Used: posterolateral Procedure: The patient tolerated the procedure well and but had some pain with the injection Coding Details: With the patient's consent the right shoulder was prepped with ChloraPrep and alcohol. Under a topical ethyl chloride spray the left subacromial space was injected with 40 mg of triamcinolone and 2 cc of 1% lidocaine. The patient tolerated the procedure without any acute adverse effects. 31976 - Large joint Procedure code (CPT) selection complete Results Reviewed Results Reviewed: Laboratory Tests 07/20/22 07/20/22 07/20/22 08:56 08:56 08:56 01/15/2022 EXAMINATION: XR SHOULDER, RIGHT CLINICAL INFORMATION: Chronic right shoulder pain? COMPARISON: None? TECHNIQUE: AP external rotation, Grashey, scapular Y, and axillary views of the right shoulder. FINDINGS: No fracture or dislocation. The glenohumeral joint is well aligned. The joint space is mildly narrowed with small osteophytes. Mild hypertrophic degenerative change of the acromioclavicular joint. The visualized lung is clear. The visualized ribs are intact.? XR/XR shoulder RT min 2V IMPRESSION: Mild degenerative changes at the right shoulder. 01/15/2022 EXAMINATION: XR KNEE, RIGHT? CLINICAL INFORMATION: Chronic right knee pain? COMPARISON: 03/13/2019? TECHNIQUE: Four views of the right knee. This includes upright AP and tunnel views. FINDINGS: No fracture or subluxation. Mild medial compartment joint space narrowing, increased from prior. Small marginal osteophytes in all compartments. No joint effusion. The soft tissues appear unremarkable. XR/XR knee RT 3V IMPRESSION: Mild tricompartmental degenerative change, somewhat progressed since 2018. 09/04/2020 EXAMINATION: XR HAND, LEFT CLINICAL INFORMATION: Trigger finger, left middle finger.? COMPARISON: None? TECHNIQUE: PA, lateral, and oblique views of the left hand. FINDINGS: There is no fracture or dislocation. Alignment is anatomic. Joint spaces are maintained. Small osteophytes at the first interphalangeal joint. Mild degenerative changes along the radial aspect of the wrist. Unremarkable appearance of the third digit. The soft tissues are unremarkable.? XR/XR hand LT min 3V IMPRESSION: Mild degenerative changes as above. Unremarkable appearance of the third digit. Assessment & Plan Assessment & Plan (1) Osteoarthritis of right shoulder: Code(s): M19.011 - Primary osteoarthritis, right shoulder Category: Medical Qualifiers: Osteoarthritis type: primary Qualified Code(s): M19.011 - Primary osteoarthritis, right shoulder Plan: 58-year-old male with generalized osteoarthritis returns for follow-up. Last visit 07/2023 right shoulder was injected with Kenalog. Patient stated that it provided 1.5-2 months relief. Patient is requesting repeat injection. With patient's consent, right shoulder was injected with Kenalog today. Advised patient that if not have long-lasting relief from injection, he should follow-up with orthopedics Advised patient to watch blood sugar over the coming few days and he might need mild increase in insulin dosage Plan I spent 17 minutes reviewing patient's chart, evaluating patient, counseling patient and documenting in the chart Orders: Orders AMB Joint Injection/Aspiration Today M19.011 - Primary osteoarthritis, right shoulder
== END 2023-11-24 13:23 | disposition home or self-care (01) ==
LOC: HO.RHE 12:02
PROVIDERS: PCP Internal Medicine; Visit Provider Student in an Organized Health Care Education/Training Program
DX: M19.011 Primary osteoarthritis, right shoulder (principal)
CPT/HCPCS: 20610; 99213

== ENCOUNTER → 2023-11-24 12:02 | Outpatient (BNVA) | payer OTHER, SELFPAY | PROVIDERS: PCP Internal Medicine; Visit Provider Student in an Organized Health Care Education/Training Program | DX: M19.011 Primary osteoarthritis, right shoulder (principal) | CPT/HCPCS: 20610; 99212 ==

== ENCOUNTER 2024-02-16 10:10 | Outpatient (REF) | payer OTHER, SELFPAY ==
[2024-02-16 11:09] LABS: Estimated Average Glucose 183 mg/dL
[2024-02-16 11:36] LABS: Alanine Aminotransferase 32 U/L (0-40); Albumin Level 4.5 g/dL (3.5-5.0); Alkaline Phosphatase 87 U/L (39-117); Anion Gap 13 (12-20); Aspartate Amino Transferase 22 U/L (5-37); Bilirubin Total 0.9 mg/dL (0.0-1.0); Blood Urea Nitrogen 17 mg/dL (9-16); Calcium 9.3 mg/dL (8.4-10.2); Carbon Dioxide 22 mmol/L (22-29); Chloride 107 mmol/L (96-108); Cholesterol 129 mg/dL (<200); Estimated Glomerular Filt Rate > 60; Glucose Random 162 mg/dL (60-115); HDL Cholesterol 37 mg/dL (>40); LDL Cholesterol Calculated 43 mg/dL (<100); Potassium 4.2 mmol/L (3.3-5.1); Sodium 138 mmol/L (135-145); Total Protein 6.9 g/dL (6.5-8.0); Triglycerides 246 mg/dL (<150)
[2024-02-16 11:51] LABS: Vitamin B12 598 pg/mL (200-900)
[2024-02-16 12:27] LABS: Creatinine Urine 107.23 mg/dL; Microalbum/Creatinine Ratio Ur 6.5 ug/mg cr (<30)
== END 2024-02-16 10:11 | disposition home or self-care (01) ==
LOC: HO.LAB 10:10
PROVIDERS: PCP Internal Medicine; Visit Provider Internal Medicine
DX: E11.65 Type 2 diabetes mellitus with hyperglycemia (principal); E78.00 Pure hypercholesterolemia, unspecified; I10 Essential (primary) hypertension; M67.813 Other specified disorders of tendon, right shoulder; N40.0 Benign prostatic hyperplasia without lower urinary tract symptoms; Z12.5 Encounter for screening for malignant neoplasm of prostate
CPT/HCPCS: 36415; 80053; 80061; 82043; 82570; 82607; 83036; 84153

== ENCOUNTER 2024-02-23 14:38 | Outpatient (AMB) | payer OTHER, SELFPAY ==
--- NOTE | 2024-02-23 14:41 | MHC.OFFVIS ---
Vital Signs 02/23/24 14:49 Height 5 ft 8 in Weight 194 lb 3.636 oz BMI 29.5 BP 122/70 Blood Pressure Location Rt brachial Position Sitting Respiration 18 Pulse 67 Pulse Source Pulse Oximeter Pulse Oximetry (%) 96 Oxygen Delivery Method Room Air Intake Visit Reasons: Shoulder OA/inj/LM Intake Note: Patient presents for shoulder OA/injection. Patient refuses to get injection today Finisher Merchant Products Required: Yes Finisher Merchant Products Services: Finisher Merchant Products Present Finisher Merchant Products Name: [id number] Allergies Penicillins [PENICILLINS] Allergy (Intermediate, Verified 02/23/24 14:47) ITCHING,SWELLING penicillin V Allergy (Unknown, Verified 02/23/24 14:47) rash & angioedema insulin glargine Adverse Reaction (Mild, Verified 02/23/24 14:47) adverse reaction- burning at injection site rosuvastatin [Crestor] Adverse Reaction (Unknown, Verified 02/23/24 14:47) myalgias Medication List - Last Reconciled 02/23/24 by Esme Blevins MD acetaminophen ER 650 mg PO Q8H aripiprazole 20 mg PO BEDTIME aspirin 81 mg PO DAILY atorvastatin 80 mg PO BEDTIME 30 days betamethasone dipropionate 0.05% topical blood-glucose meter (FreeStyle Lite Meter kit) As directed buspirone 5 mg PO TID cholecalciferol (vitamin D3) 25 mcg PO DAILY 30 days cholecalciferol (vitamin D3) 25 mcg PO DAILY clonazepam 1 mg PO DAILY PRN diphenhydramine HCl 50 mg PO BEDTIME doxazosin 1 mg PO DAILY empagliflozin-metformin 12.5-1,000 mg ER (Synjardy XR) 1 tab PO BID gabapentin 100 mg PO TID hydroxyzine HCl 10 mg PO TID PRN ibuprofen 600 mg PO TID PRN insulin aspart U-100 (Novolog FlexPen U-100 Insulin aspart) 10 - 16 units (0.1 - 0.16 mL) subcut TID 30 days insulin degludec (Tresiba FlexTouch U-100 insulin) 37 units (0.37 mL) subcut BEDTIME lidocaine 5% 1 patch topical DAILY lisinopril 10 mg PO DAILY 30 days meclizine mg PO BID omega-3 fatty acids 2,000 mg (2 x 1,000 mg) PO BID 30 days omeprazole 20 mg PO DAILY ondansetron mg PO pen needle, diabetic (BD Rachel 2nd Gen Pen Needle) 5 times a day sertraline 200 mg PO DAILY tacrolimus 0.1% topical trazodone 100 mg PO BEDTIME PRN HPI Comments Details: This is a 58-year-old male with generalized osteoarthritis returns for follow-up. Last visit right shoulder was injected with Kenalog. States that the injection helped him for 1.5-2 months. States that he gets shoulder pain with any range of motion. States that he ruptured a tendon on the anterior aspect of his right shoulder many years ago when his pit bull pulled his leash. He continues to have pain with range of motion. He would like to have doing study to better understand his shoulder problem. Right shoulder x-rays done in 2021 only showed degenerative changes. [facility] Medical History Osteoarthritis of right knee Obesity due to excess calories Hemorrhoids Diverticulosis Colon cancer screening Non-proliferative diabetic retinopathy, mild, both eyes Diabetes type 2, uncontrolled Depression History of pancreatitis Overweight (BMI 25.0-29.9) Vitamin D deficiency Hypertension emt intermediate (current) use of insulin Dyslipidemia Surgical History H/O hand surgery History of colonoscopy (~2020) Hx of colonoscopy Hx of appendectomy Hx of inguinal hernia repair Hx of knee surgery Family History Father Diabetes Prostate cancer Mother Diabetes Social History Household Members: Spouse and Children Alcohol intake: former Patient Tobacco Use Status: Former Tobacco user Tobacco use type: Cigarette Current occupational status: disabled 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 Review of Systems [facility] Reports arthralgias, Reports limited range of motion and Reports stiffness Physical Exam Vital Signs: Last Vital Signs Pulse 67 02/23/24 14:49 Resp 18 02/23/24 14:49 BP 122/70 02/23/24 14:49 Pulse Ox 96 02/23/24 14:49 Oxygen Delivery Method Room Air 02/23/24 14:49 BMI result Body Mass Index 29.5 Const General: cooperative, healthy appearing and comfortable Nutritional Appearance: overweight Limitations: no limitations HEENT Head: Yes normocephalic and Yes atraumatic Resp Effort & Inspection: normal respiratory effort and able to speak in complete sentences Extrem Other: Limited range of motion of right shoulder Positive empty can and lift-off tests on the right Negative Speed's test on the right Results Reviewed Results Reviewed: Laboratory Tests 07/20/22 07/20/22 07/20/22 08:56 08:56 08:56 01/15/2022 EXAMINATION: XR SHOULDER, RIGHT CLINICAL INFORMATION: Chronic right shoulder pain? COMPARISON: None? TECHNIQUE: AP external rotation, Grashey, scapular Y, and axillary views of the right shoulder. FINDINGS: No fracture or dislocation. The glenohumeral joint is well aligned. The joint space is mildly narrowed with small osteophytes. Mild hypertrophic degenerative change of the acromioclavicular joint. The visualized lung is clear. The visualized ribs are intact.? XR/XR shoulder RT min 2V IMPRESSION: Mild degenerative changes at the right shoulder. 01/15/2022 EXAMINATION: XR KNEE, RIGHT? CLINICAL INFORMATION: Chronic right knee pain? COMPARISON: 03/13/2019? TECHNIQUE: Four views of the right knee. This includes upright AP and tunnel views. FINDINGS: No fracture or subluxation. Mild medial compartment joint space narrowing, increased from prior. Small marginal osteophytes in all compartments. No joint effusion. The soft tissues appear unremarkable. XR/XR knee RT 3V IMPRESSION: Mild tricompartmental degenerative change, somewhat progressed since 2019. 09/04/2020 EXAMINATION: XR HAND, LEFT CLINICAL INFORMATION: Trigger finger, left middle finger.? COMPARISON: None? TECHNIQUE: PA, lateral, and oblique views of the left hand. FINDINGS: There is no fracture or dislocation. Alignment is anatomic. Joint spaces are maintained. Small osteophytes at the first interphalangeal joint. Mild degenerative changes along the radial aspect of the wrist. Unremarkable appearance of the third digit. The soft tissues are unremarkable.? XR/XR hand LT min 3V IMPRESSION: Mild degenerative changes as above. Unremarkable appearance of the third digit. Assessment & Plan Assessment & Plan (1) Osteoarthritis of right shoulder: Code(s): M19.011 - Primary osteoarthritis, right shoulder Category: Medical Qualifiers: Osteoarthritis type: primary Qualified Code(s): M19.011 - Primary osteoarthritis, right shoulder Plan: 58-year-old male with generalized osteoarthritis returns for follow-up. He stated that in 2021 he injured his right shoulder when his pit bull pulled on his leash. Since then he has been having right shoulder pain, limitation of range of motion and pain with any range of motion, received multiple steroid injections which provided short-lived relief. Last injection was 11/2023. On exam there is significant limitation of range of motion of the right shoulder. Given ongoing symptoms with minimal relief with steroid injections I would like to order right shoulder MRI to rule out internal derangement such as labral tear, rotator cuff or biceps tendon tear Can apply Voltaren gel and lidocaine patches. Follow-up in 2 months after MRI is completed Plan I spent 17 minutes reviewing patient's chart, evaluating patient, ordering diagnostic workup, counseling patient and documenting in the chart Orders: Orders MR shoulder RT wo con Today M75.81 - Other shoulder lesions, right shoulder Medications: New diclofenac sodium 1% apply to single knee, ankle, foot; for foot includes sole/toes/top of foot 4 grams topical QID 100 grams 1RF Coding Level of Care Code Est Pt Level 3 (22497) Diagnoses Primary osteoarthritis of right shoulder M19.011 Osteoarthritis type: primary
[2024-02-23 14:49] VITALS: BP 122/70; PULSE 67; RESP 18; O2SAT 96; BMI 29.5
== END 2024-02-23 15:07 | disposition home or self-care (01) ==
PROVIDERS: PCP Internal Medicine; Visit Provider Student in an Organized Health Care Education/Training Program
DX: M19.011 Primary osteoarthritis, right shoulder (principal)
CPT/HCPCS: 99213

== ENCOUNTER → 2024-02-23 14:38 | Outpatient (BNVA) | payer OTHER, SELFPAY | PROVIDERS: PCP Internal Medicine; Visit Provider Student in an Organized Health Care Education/Training Program | DX: M19.011 Primary osteoarthritis, right shoulder (principal); M75.81 Other shoulder lesions, right shoulder | CPT/HCPCS: 99212 ==

== ENCOUNTER 2024-04-17 14:46 | Outpatient (REF) | payer OTHER, SELFPAY ==
--- NOTE | ~2024-04-17 | MR_ITS ---
EXAMINATION: MR SHOULDER WITHOUT CONTRAST, RIGHT CLINICAL INFORMATION: Rotator cuff tendinitis. COMPARISON: X-ray 01/15/2022. TECHNIQUE: MRI of the shoulder without contrast was performed on a high-field scanner. FINDINGS: ROTATOR CUFF: Full-thickness tear of the supraspinatus and anterior fibers infraspinatus measuring 3.6 x 3.1 cm (AP x ML). There is mild tendinosis of the intact fibers of the supraspinatus and infraspinatus. Teres minor is intact. Moderate subscapularis tendinosis. Severe supraspinatus muscle atrophy. BICEPS: Moderate biceps tendinosis and partial tearing. CORACOACROMIAL ARCH: The undersurface of the acromion is curved with no subacromial spur. Moderate acromioclavicular arthritis. LABRUM/CAPSULE: Posterior labral degenerative fraying/tearing. GLENOHUMERAL JOINT/MARROW: Mild glenohumeral joint arthritis. Greater tuberosity subcortical degenerative cyst/edema. No fracture. Small effusion. MR/MR shoulder RT wo con IMPRESSION: 1. Full-thickness tear of the supraspinatus and anterior fibers infraspinatus measuring 3.6 x 3.1 cm. Mild tendinosis of the intact fibers of the supraspinatus and infraspinatus. 2. Moderate subscapularis tendinosis. 3. Moderate biceps tendinosis and partial tearing. 4. Posterior labral degenerative fraying/tearing. 5. Mild glenohumeral joint arthritis. Small effusion. 6. Moderate acromioclavicular arthritis. Electronically signed by: Tonny William MD 04/20/2024 03:04 PM EDT
== END 2024-04-17 14:47 | disposition home or self-care (01) ==
LOC: HO.MRI 14:46
PROVIDERS: PCP Internal Medicine; Visit Provider Student in an Organized Health Care Education/Training Program
DX: M75.81 Other shoulder lesions, right shoulder (principal)
CPT/HCPCS: 73221

== ENCOUNTER 2024-05-09 13:39 | Outpatient (AMB) | payer OTHER, SELFPAY ==
--- NOTE | 2024-05-09 14:04 | A.OFFVIS_ITS ---
Vital Signs 05/09/24 14:09 Height 5 ft 8 in Weight 197 lb 15.602 oz BMI 30.1 BP 120/62 Blood Pressure Location Rt brachial Position Sitting Pulse 51 Pulse Source Pulse Oximeter Pulse Oximetry (%) 96 Oxygen Delivery Method Room Air Intake Visit Reasons: RT shoulder tendinopathy Intake Note: Patient presents for RT shoulder tendinopathy. Health Assistant Required: Yes Health Assistant Language: Fish Technologist Services: Health Assistant Present Health Assistant Name: Edinson [id number] Information Interpreted: non-clinical & clinical Allergies Penicillins [PENICILLINS] Allergy (Intermediate, Verified 05/09/24 14:08) ITCHING,SWELLING penicillin V Allergy (Unknown, Verified 05/09/24 14:08) rash & angioedema insulin glargine Adverse Reaction (Mild, Verified 05/09/24 14:08) adverse reaction- burning at injection site rosuvastatin [Crestor] Adverse Reaction (Unknown, Verified 05/09/24 14:08) myalgias Medication List - Last Reconciled 05/09/24 by Esme Blevins MD acetaminophen ER 650 mg PO Q8H aripiprazole 20 mg PO BEDTIME aspirin 81 mg PO DAILY atorvastatin 80 mg PO BEDTIME 30 days betamethasone dipropionate 0.05% topical blood-glucose meter (FreeStyle Lite Meter kit) As directed buspirone 5 mg PO TID cholecalciferol (vitamin D3) 25 mcg PO DAILY 30 days cholecalciferol (vitamin D3) 25 mcg PO DAILY clonazepam 1 mg PO DAILY PRN diclofenac sodium 1% 4 grams topical QID diphenhydramine HCl 50 mg PO BEDTIME doxazosin 1 mg PO DAILY empagliflozin-metformin 12.5-1,000 mg ER (Synjardy XR) 1 tab PO BID gabapentin 100 mg PO TID hydroxyzine HCl 10 mg PO TID PRN ibuprofen 600 mg PO TID PRN insulin aspart U-100 (Novolog FlexPen U-100 Insulin aspart) 10 - 16 units (0.1 - 0.16 mL) subcut TID 30 days insulin degludec (Tresiba FlexTouch U-100 insulin) 37 units (0.37 mL) subcut BEDTIME lidocaine 5% 1 patch topical Q24H lisinopril 10 mg PO DAILY 30 days meclizine mg PO BID omega-3 fatty acids 2,000 mg (2 x 1,000 mg) PO BID 30 days omeprazole 20 mg PO DAILY ondansetron mg PO pen needle, diabetic (BD Rachel 2nd Gen Pen Needle) 5 times a day sertraline 200 mg PO DAILY tacrolimus 0.1% topical trazodone 100 mg PO BEDTIME PRN HPI Comments Details: 59 old male with generalized osteoarthritis returns for follow-up after c ompletion of his right shoulder MRI. Continues to feel about the same [facility] Medical History Osteoarthritis of right knee Obesity due to excess calories Hemorrhoids Diverticulosis Colon cancer screening Non-proliferative diabetic retinopathy, mild, both eyes Diabetes type 2, uncontrolled Depression History of pancreatitis Overweight (BMI 25.0-29.9) Vitamin D deficiency Hypertension jail (current) use of insulin Dyslipidemia Surgical History H/O hand surgery History of colonoscopy (~2020) Hx of colonoscopy Hx of appendectomy Hx of inguinal hernia repair Hx of knee surgery Family History Father Diabetes Prostate cancer Mother Diabetes Social History Household Members: Spouse and Children Alcohol intake: former Patient Tobacco Use Status: Former Tobacco user Tobacco use type: Cigarette Current occupational status: disabled 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 Review of Systems [facility] [place] Reports arthralgias, Reports limited range of motion and Reports stiffness Physical Exam Vital Signs: Last Vital Signs Pulse 51 05/09/24 14:09 BP 120/62 05/09/24 14:09 Pulse Ox 96 05/09/24 14:09 Oxygen Delivery Method Room Air 05/09/24 14:09 BMI result Body Mass Index 30.1 Const General: cooperative, healthy appearing and comfortable Nutritional Appearance: overweight Limitations: no limitations HEENT Head: Yes normocephalic and Yes atraumatic Resp Effort & Inspection: normal respiratory effort and able to speak in complete sentences Assessment & Plan Assessment & Plan (1) Rotator cuff tear, right: Code(s): M75.101 - Unspecified rotator cuff tear or rupture of right shoulder, not specified as traumatic Category: Medical Qualifiers: Rotator cuff tear extent: complete Rotator cuff tear trauma status: nontraumatic Qualified Code(s): M75.121 - Complete rotator cuff tear or rupture of right shoulder, not specified as traumatic Plan: Patient returns for follow-up after completion of his right shoulder MRI which showed multiple tears. Referred patient to orthopedics for further evaluation Follow-up p.r.n. Plan I spent 20 minutes reviewing patient's chart, evaluating patient, counseling patient and documenting in the chart Orders: Referrals Orthopedics Referral M75.101 - Unspecified rotator cuff tear or rupture of right shoulder, not specified as traumatic Coding Level of Care Code Est Pt Level 3 (75630) Diagnoses Nontraumatic complete tear of right rotator cuff M75.121 Rotator cuff tear extent: complete Rotator cuff tear trauma status: nontraumatic
[2024-05-09 14:09] VITALS: BP 120/62; PULSE 51; O2SAT 96; BMI 30.1
== END 2024-05-09 14:40 | disposition home or self-care (01) ==
PROVIDERS: PCP Internal Medicine; Visit Provider Student in an Organized Health Care Education/Training Program
DX: M75.121 Complete rotator cuff tear or rupture of right shoulder, not specified as traumatic (principal)
CPT/HCPCS: 99213

== ENCOUNTER → 2024-05-09 13:39 | Outpatient (BNVA) | payer OTHER, SELFPAY | PROVIDERS: PCP Internal Medicine; Visit Provider Student in an Organized Health Care Education/Training Program | DX: M75.121 Complete rotator cuff tear or rupture of right shoulder, not specified as traumatic (principal) | CPT/HCPCS: 99212 ==

== ENCOUNTER 2024-05-17 09:21 | Outpatient (REF) | payer OTHER, SELFPAY ==
[2024-05-17 10:05] LABS: Estimated Average Glucose 194 mg/dL; Hemoglobin A1C 260.8612 umol/L; Hemoglobin A1c % 8.4 % (<6.0); Total Hemoglobin (HGBA1C) 3834.8884 umol/L
[2024-05-17 10:43] LABS: Alanine Aminotransferase 30 U/L (0-40); Albumin Level 4.4 g/dL (3.5-5.0); Alkaline Phosphatase 84 U/L (39-117); Anion Gap 11 (12-20); Aspartate Amino Transferase 22 U/L (5-37); Bilirubin Total 0.9 mg/dL (0.0-1.0); Blood Urea Nitrogen 17 mg/dL (9-16); Calcium 9.6 mg/dL (8.4-10.2); Carbon Dioxide 27 mmol/L (22-29); Chloride 108 mmol/L (96-108); Estimated Glomerular Filt Rate > 60; Glucose Random 130 mg/dL (60-115); Potassium 4.6 mmol/L (3.3-5.1); Sodium 141 mmol/L (135-145); Total Protein 6.9 g/dL (6.5-8.0)
== END 2024-05-17 09:22 | disposition home or self-care (01) ==
LOC: HO.LAB 09:21
PROVIDERS: PCP Internal Medicine; Visit Provider Internal Medicine
DX: E11.65 Type 2 diabetes mellitus with hyperglycemia (principal); E78.00 Pure hypercholesterolemia, unspecified; F17.210 Nicotine dependence, cigarettes, uncomplicated; I10 Essential (primary) hypertension
CPT/HCPCS: 36415; 80053; 83036

== ENCOUNTER 2024-06-05 09:35 | Outpatient (AMB) | payer OTHER, SELFPAY ==
--- NOTE | 2024-06-05 09:39 | A.OFFVIS_ITS ---
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 Right shoulder MRI done on 04/17/24. Hx of Type 2 DM. The patient reports progressively worsening right shoulder pain and weakness. States that he ?may have injured the shoulder at home?. States that over the last few weeks he has had difficulty lifting his right hand above shoulder height. He has done physical therapy exercises which aggravated his pain. He has also had injections in the past which gave him minimal relief. Director Of Oncology Required: Yes Director Of Oncology Language: Post Graduate Internship Name: [id number] Allergies Penicillins [PENICILLINS] Allergy (Intermediate, Verified 06/05/24 09:48) ITCHING,SWELLING penicillin V Allergy (Unknown, Verified 06/05/24 09:48) rash & angioedema insulin glargine Adverse Reaction (Mild, Verified 06/05/24 09:48) adverse reaction- burning at injection site rosuvastatin [Crestor] Adverse Reaction (Unknown, Verified 06/05/24 09:48) myalgias Medication List - Last Reconciled 06/05/24 by Meño Workman MD acetaminophen ER 650 mg PO Q8H aripiprazole 20 mg PO BEDTIME aspirin 81 mg PO DAILY atorvastatin 80 mg PO BEDTIME 30 days betamethasone dipropionate 0.05% topical blood-glucose meter (FreeStyle Lite Meter kit) As directed buspirone 5 mg PO TID cholecalciferol (vitamin D3) 25 mcg PO DAILY 30 days cholecalciferol (vitamin D3) 25 mcg PO DAILY clonazepam 1 mg PO DAILY PRN diclofenac sodium 1% 4 grams topical QID diphenhydramine HCl 50 mg PO BEDTIME doxazosin 1 mg PO DAILY empagliflozin-metformin 12.5-1,000 mg ER (Synjardy XR) 1 tab PO BID gabapentin 100 mg PO TID hydroxyzine HCl 10 mg PO TID PRN ibuprofen 600 mg PO TID PRN insulin aspart U-100 (Novolog FlexPen U-100 Insulin aspart) 10 - 16 units (0.1 - 0.16 mL) subcut TID 30 days insulin degludec (Tresiba FlexTouch U-100 insulin) 37 units (0.37 mL) subcut BEDTIME lidocaine 5% 1 patch topical Q24H lisinopril 10 mg PO DAILY 30 days meclizine mg PO BID omega-3 fatty acids 2,000 mg (2 x 1,000 mg) PO BID 30 days omeprazole 20 mg PO DAILY ondansetron mg PO pen needle, diabetic (BD Rachel 2nd Gen Pen Needle) 5 times a day sertraline 200 mg PO DAILY tacrolimus 0.1% topical trazodone 100 mg PO BEDTIME PRN PFSH Medical History Osteoarthritis of right knee Obesity due to excess calories Hemorrhoids Diverticulosis Colon cancer screening Non-proliferative diabetic retinopathy, mild, both eyes Diabetes type 2, uncontrolled Depression History of pancreatitis Overweight (BMI 25.0-29.9) Vitamin D deficiency 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 Dyslipidemia Surgical History H/O hand surgery History of colonoscopy (~2020) Hx of colonoscopy Hx of appendectomy Hx of inguinal hernia repair Hx of knee surgery Family History Father Diabetes Prostate cancer Mother Diabetes Social History Household Members: Spouse and Children Alcohol intake: former Patient Tobacco Use Status: Former Tobacco user Tobacco use type: Cigarette Current occupational status: disabled 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 Physical Exam Vital Signs: BMI result Body Mass Index 29.6 Const Other: Well-nourished well-developed very friendly male awake alert and oriented x3 in no acute distress Extrem Other: Right shoulder examination shows decreased active range of motion but almost full passive range of motion when compared to his left shoulder, 3/5 strength with supraspinatus testing, positive impingement signs, no instability Results Reviewed Results Reviewed: MRI of the patient's right shoulder shows a large rotator cuff tear involving the supraspinatus and infraspinatus tendons with retraction just lateral to the glenoid lip Assessment & Plan Assessment & Plan (1) Rotator cuff tear, right: Code(s): M75.101 - Unspecified rotator cuff tear or rupture of right shoulder, not specified as traumatic Category: Medical Qualifiers: Rotator cuff tear extent: complete Rotator cuff tear trauma status: nontraumatic Qualified Code(s): M75.121 - Complete rotator cuff tear or rupture of right shoulder, not specified as traumatic Plan Mr. Rupert Garrett presents with progressively worsening right shoulder pain and weakness due to a large rotator cuff tear. I had a lengthy discussion with the patient regarding the treatment options. At this point the patient appears to be failing continued non operative treatments. Because of the large size and retraction of the rotator cuff tear I am not sure that a primary repair is possible. The patient may require reverse total shoulder replacement surgery or a surgical patch to reinforce a primary repair. Thus, I will have him evaluated by my partner, Dr. Corbett. He will continue with his range of motion exercises in the meantime. Feel free to call me at any time should questions regarding his orthopedic management arise. I spent 20 minutes in reviewing the patient's records and imaging studies, seeing the patient and documenting in the medical record. Coding Level of Care Code New Pt Level 3 (63668) Diagnoses Nontraumatic complete tear of right rotator cuff M75.121 Rotator cuff tear extent: complete Rotator cuff tear trauma status: nontraumatic
[2024-06-05 09:51] VITALS: BMI 29.6
== END 2024-06-05 10:00 | disposition home or self-care (01) ==
LOC: HO.HOS 09:35
PROVIDERS: PCP Internal Medicine; Visit Provider Orthopaedic Surgery
DX: M75.121 Complete rotator cuff tear or rupture of right shoulder, not specified as traumatic (principal)
CPT/HCPCS: 99203

== ENCOUNTER → 2024-06-05 09:35 | Outpatient (BNVA) | payer OTHER, SELFPAY | PROVIDERS: PCP Internal Medicine; Visit Provider Orthopaedic Surgery | DX: M75.121 Complete rotator cuff tear or rupture of right shoulder, not specified as traumatic (principal) | CPT/HCPCS: 99202 ==

== ENCOUNTER 2024-07-12 09:48 | Outpatient (AMB) | payer OTHER, SELFPAY ==
--- NOTE | 2024-07-12 09:57 | A.OFFVIS_ITS ---
Vital Signs 07/12/24 09:58 Height 5 ft 8 in Weight 195 lb BMI 29.6 Intake Visit Reasons: OV - Right Shoulder Pain - Dr. Workman Referral Intake Note: Roger is a 59 year old right hand dominant male who presents today for a follow up of his right shoulder. He was referred by Dr. Workman to discuss possible Right TSA or RTC Repair. Patient reports that he has had progressively worsening right shoulder pain and weakness, increased pain with above the head ROM. He has tried and failed physical therapy. Shoulder was injected with Rheumatology in November which provided about 1-2 month of relief. Allergies Penicillins [PENICILLINS] Allergy (Intermediate, Verified 07/12/24 10:00) ITCHING,SWELLING penicillin V Allergy (Unknown, Verified 07/12/24 10:00) rash & angioedema insulin glargine Adverse Reaction (Mild, Verified 07/12/24 10:00) adverse reaction- burning at injection site rosuvastatin [Crestor] Adverse Reaction (Unknown, Verified 07/12/24 10:00) myalgias HPI HPI OV - Right Shoulder Pain - Dr. Workman Referral: Details: Roger is a 59 year old right hand dominant male who presents today for a follow up of his right shoulder. He was referred by Dr. Workman to discuss possible Right TSA or RTC Repair. Patient reports that he has had progressively worsening right shoulder pain and weakness, increased pain with above the head ROM. He has tried and failed physical therapy. Shoulder was injected with Rheumatology in November which provided about 1-2 month of relief. He feels that this started about 8 years ago when his dog pulled his arm in such a way that he had immediate pain. He did not seek medical attention at that time. 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 He is diabetic but this is well controlled. He would like to be able to live without pain. He can barely get his hand to the back of his head and when he does it causes discomfort. 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 Dyslipidemia Surgical History H/O hand surgery History of colonoscopy (~2020) Hx of colonoscopy Hx of appendectomy Hx of inguinal hernia repair Hx of knee surgery Family History Father Diabetes Prostate cancer Mother Diabetes Social History Household Members: Spouse and Children Alcohol intake: former Patient Tobacco Use Status: Former Tobacco user Tobacco use type: Cigarette Current occupational status: disabled 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 1. Full-thickness tear of the supraspinatus and anterior fibers infraspinatus measuring 3.6 x 3.1 cm. Mild tendinosis of the intact fibers of the supraspinatus and infraspinatus. Severe atrophy of the supraspinatus 2. Moderate subscapularis tendinosis. 3. Moderate biceps tendinosis and partial tearing. 4. Posterior labral degenerative fraying/tearing. 5. Mild glenohumeral joint arthritis. Small effusion. 6. Moderate acromioclavicular arthritis. Assessment & Plan Assessment & Plan (1) Rotator cuff arthropathy of right shoulder: Code(s): M12.811 - Other specific arthropathies, not elsewhere classified, right shoulder Category: Medical Plan: This is a 59-year-old with rotator cuff arthropathy of the right shoulder. He has a unrepairable rotator cuff tear. I reviewed the MRI findings with him and the treatment options. He has not felt that injections are reasonable solution and I recommend reverse total shoulder arthroplasty. I discussed with him the rationale for this in the mechanics behind this surgery. I explained to him the risks, benefits and alternatives. He is not working and not involved in overhead activities and would like to be able to care for himself and move without pain while maintaining good function. I think this is a good solution for him. I answered his questions and begin the preoperative clearance process. Coding Level of Care Code Est Pt Level 4 (60663) Diagnoses Rotator cuff arthropathy of right shoulder M12.811
[2024-07-12 09:58] VITALS: BMI 29.6
== END 2024-07-12 11:06 | disposition home or self-care (01) ==
PROVIDERS: PCP Internal Medicine; Visit Provider Orthopaedic Surgery
DX: M12.811 Other specific arthropathies, not elsewhere classified, right shoulder (principal)
CPT/HCPCS: 99214

== ENCOUNTER → 2024-07-12 09:48 | Outpatient (BNVA) | payer OTHER, SELFPAY | PROVIDERS: PCP Internal Medicine; Visit Provider Orthopaedic Surgery | DX: M12.811 Other specific arthropathies, not elsewhere classified, right shoulder (principal) | CPT/HCPCS: 99212 ==

== ENCOUNTER 2024-11-16 10:07 | Outpatient (REF) | payer OTHER, SELFPAY ==
--- OUTSIDE RECORDS SUMMARY | 2024-11-16 10:50 | XMS_ITS | Encounter Summary ---
Author Organization [facility] Address [address] [place] [address] [address] [place] [address] Care Team Providers Care Manager Sound Name Role Phone Unavailable Primary Care Provider Unavailabl e Encounter Details Date Type Department Care Team (Latest Contact Info) Description 04/06/2019 Abstract [facility] CONVERSIONS Dental, Provider, DDS Social History Tobacco Use Types Packs/Day Years Used Date Smoking Tobacco: Never Assessed Sex and Gender Information Value Date Recorded Sex Assigned at Male 06/07/2022 10:30 AM EDT Legal Sex Male 10:30 AM EDT Gender Identity Male 06/07/2022 10:30 AM EDT Sexual Orientation Straight 06/07/2022 10 :30 AM EDT documented as of this encounter Plan of Treatment Not on file documented as of this encounter Visit Diagnoses Not on filedocumented in this encounter
--- OUTSIDE RECORDS SUMMARY | 2024-11-16 10:50 | XMS_ITS | Clinical Summary ---
Author Organization [facility] ity Address [address] [place] [address] Care Team Providers Care Coin Purse Framer Name Role Phone Unavailable Primary Care Provider Unavailabl e Social History Tobacco Use Types Packs/Day Years Used Date Smoking Tobacco: Never Assessed Sex and Gender Information Value Date Recorded Sex Assigned at Not on file Legal Sex Male 9:02 AM EST Gender Identity Not on file Sexual Orientation Not on file Plan of Treatment Health Maintenance Due Date Last Done Comments DTaP,Tdap,and Td Vaccines (1 - Tdap) 1983 Pneumococcal Vaccine: 50+ Ye ars (1 of 1 - PCV) 2014 Zoster Vaccines (1 of 2) 2014 Cholesterol Screening (Lipid Panel) 07/11/2022 Colorectal Cancer Screening: Colonoscopy 07/11/2022 Depression Screening 07/11/2022 HIV Screening 07/11/2022 Hepatitis C Screening 07/11/2022 Social Influencers of Health Screening 07/11/2022 COVID-19 Vaccine ( - 2023-2 5 season) 2024 Influenza Vaccine (Season Ended) 2025 RSV Immunization Adult Patie nts (1 - 1-dose 75+ series) 2039 HIB Vaccines Aged Out No longer eligi ble based on patient's age to complete this topic HPV Vaccines Aged Out No longer eligi ble based on patient's age to complete this topic Hepatitis A Vaccines Aged Out No long er eligible based on patient's age to complete this topic Hepatitis B Vaccines Aged Out No long er eligible based on patient's age to complete this topic IPV Vaccines Aged Out No longer eligi ble based on patient's age to complete this topic MMR Vaccines Aged Out No longer eligi ble based on patient's age to complete this topic Meningococcal ACWY Vaccine Aged Out N o longer eligible based on patient's age to complete this topic Meningococcal B Vaccine Aged Out No l onger eligible based on patient's age to complete this topic Pneumococcal Vaccine: Pediat rics (0 to 5 Years) and At-Risk Patients (6 to 64 Years) Aged Out No longer eligible b ased on patient's age to complete this topic RSV Immunization Patients Un mike 20 months Aged Out No longer eligible b ased on patient's age to complete this topic Varicella Vaccines Aged Out No longer eligible based on patient's age to complete this topic
--- OUTSIDE RECORDS SUMMARY | 2024-11-16 10:50 | XMS_ITS | Encounter Summary ---
Author Organization [facility] Address [address] [place] [address] [address] [place] [address] Care Team Providers Care Crucible Packer Name Role Phone Unavailable Primary Care Provider Unavailabl e Encounter Details Date Type Department Care Team (Latest Contact Info) Description 08/25/2021 Abstract [facility] CONVERSIONS Dental, Provider, DDS Social History [...]
--- OUTSIDE RECORDS SUMMARY | 2024-11-16 10:50 | XMS_ITS | Clinical Summary ---
Author Organization [facility] Address [address] [facility] [address] [place] [address] Care Team Providers Care Application Systems Administrator Name Role Phone Unavailable Primary Care Provider Unavailabl e Allergies Active Allergy Reactions Criticality Noted Date Comments Penicillins 03/08/2016 Medications acetaminophen (Tylenol 8 Hour) 650 MG ER tablet Take 650 mg by mouth every 8 (eight) hours. 3 Active atorvastatin (Lipitor) 80 MG tablet Take 80 mg by mouth at bedtime. 4 Active cholecalciferol (Vitamin D3) 25 MCG (1000 UT) tablet Take 25 tablets by mouth Once per day. 4 Active gabapentin (Neurontin) 100 MG capsule Take 100 mg by mouth 3 times daily. 4 Active NovoLOG FLEXPEN 100 UNIT/ML pen Inject 12 Units under the skin. 4 Active Tresiba FlexTouch 100 UNIT/ML injection Inject 45 Units under the skin at bedtime. 4 Active lisinopril 20 MG tablet Take 20 mg by mouth Once per day. 4 Active sertraline (Zoloft) 100 MG tablet Take 100 mg by mouth Once per day. Active Januvia 100 MG tablet Take 100 mg by mouth Once per day. 4 Active traZODone (Desyrel) 100 MG tablet Take 100 mg by mouth at bedtime. 4 Active trimethoprim-polymy harvey b (Polytrim) ophthalmic solutionIndications :Conjunctivitis of both eyes, unspecified conjunctivitis type Use 1 drop QID for 7 days 10 mL 4 Active Active Problems Problem Noted Date Diagnosed Date Conjunctivitis of both eyes 05/02/2024 Assessment & Plan (05/02/2024 3:19 PM EDT): Likely viral conjunctivitis. Supportive care advised. -prescribing Polytrim eye drops. -ER precautions given. Immunizations Name Administration Dates Next Due Influenza Injectable Quadriv alant Preservative Free IIV4 MDCK 08/16/2018 Influenza, seasonal, injectable, preservative fr ee 05/24/2024 Moderna Covid-19 Vaccine 12+ 12/15/2020 Social History Tobacco Use Types Packs/Day Years Used Date Smoking Tobacco: Former Cigarettes Smokeless Tobacco: Never Tobacco Cessation:Counseling Given: Not Answered Alcohol Use Standard Drinks/Week Comments Never 0 (1 standard drink = 0.6 oz pur e alcohol) Sex and Gender Information Value Date Recorded Sex Assigned at Male 06/07/2022 10:30 AM EDT Legal Sex Male 10:30 AM EDT Gender Identity Male 06/07/2022 10:30 AM EDT Sexual Orientation Straight 06/07/2022 10 :30 AM EDT Last Filed Vital Signs Vital Sign Reading Time Taken Comments Blood Pressure 120/79 05/02/2024 3:00 PM EDT Pulse 68 05/02/2024 3:00 PM EDT Temperature 36.1 ??C (97 ??F) 05/02/2024 3:00 PM EDT Respiratory Rate 17 05/02/2024 3:00 PM EDT Oxygen Saturation 96% 05/02/2024 3:00 PM EDT Inhaled Oxygen Concentration - - Weight 88.9 kg (196 lb) 05/02/2024 3:00 PM EDT Height 172.7 cm (5' 8 ) 05/02/2024 3:00 PM EDT Body Mass Index 29.8 05/02/2024 3:00 PM EDT Plan of Treatment Health Maintenance Due Date Last Done Comments CT Colonography 1964 Colonoscopy 1964 Colorectal Cancer Screening 1964 Depression Screening 1964 FIT DNA/Cologuard 1964 FIT 1964 FOBT 1964 HIV Screening 1964 Lipid Panel 1964 SDOH Screening 1964 Sigmoidoscopy 1964 Alcohol/Substance Use Screening 1976 Hepatitis C Screening 1982 DTaP/Tdap/Td Vaccines (1 - Tdap) 1983 Pneumococcal Vaccine: 50+ Years (1 of 1 - PCV) 2014 Zoster Vaccines (1 of 2) 2014 COVID-19 Vaccine (2 - 2023-2 5 season) 2024 12/15/2020 Tobacco Screening 05/02/2025 05/02/2024 RSV Patients and Patients Aged 60 years or older (1 - 1-dose 75+ series) 2039 Influenza Vaccine Completed 05/24/2024, 08/16/2018 HIB Vaccines Aged Out No longer eligi [...] patient's age to complete this topic Meningococcal Vaccine Aged Out No edel sofy eligible based on patient's age to complete this topic RSV under 20 months Aged Out No longe r eligible based on patient's age to complete this topic Rotavirus Vaccines Aged Out No longer eligible based on patient's age to complete this topic [place] [address] [place] [address] - [employer]
[2024-11-16 11:31] LABS: Estimated Average Glucose 163 mg/dL; Hemoglobin A1C 235.1882 umol/L; Hemoglobin A1c % 7.3 % (<6.0); Total Hemoglobin (HGBA1C) 4177.6706 umol/L
[2024-11-16 11:38] LABS: Alanine Aminotransferase 35 U/L (0-40); Albumin Level 4.4 g/dL (3.5-5.0); Alkaline Phosphatase 84 U/L (39-117); Anion Gap 10 (12-20); Aspartate Amino Transferase 25 U/L (5-37); Bilirubin Total 0.7 mg/dL (0.0-1.0); Blood Urea Nitrogen 13 mg/dL (9-16); Calcium 9.7 mg/dL (8.4-10.2); Carbon Dioxide 29 mmol/L (22-29); Chloride 109 mmol/L (96-108); Estimated Glomerular Filt Rate > 60; Glucose Random 145 mg/dL (60-115); Potassium 4.5 mmol/L (3.3-5.1); Sodium 143 mmol/L (135-145)
== END 2024-11-16 10:08 | disposition home or self-care (01) ==
LOC: HO.LAB 10:07
PROVIDERS: PCP Internal Medicine; Visit Provider Internal Medicine
DX: E11.65 Type 2 diabetes mellitus with hyperglycemia (principal); Z79.4 Long term (current) use of insulin; F17.201 Nicotine dependence, unspecified, in remission
CPT/HCPCS: 36415; 80053; 83036

== ENCOUNTER 2025-02-18 10:04 | Outpatient (REF) | payer OTHER, SELFPAY ==
[2025-02-18 10:14] LABS: MANUAL DIFF FLAG NO
--- OUTSIDE RECORDS SUMMARY | 2025-02-18 10:45 | XMS_ITS | Clinical Summary ---
Author Organization [facility] [employer] [facility] ity Address [address] [place] [address] Care Team Providers Care Punch Hand Name Role Phone Unavailable Primary Care Provider [...] - 2023-2 5 season) 2024 Influenza Vaccine (#1) 2025 RSV Immunization Adult Patie nts (1 [...] 5 Years) and At-Risk Patients (6 to 49 Years) Aged Out No longer eligible b ased on patient's age to complete this topic RSV Immunization Patients Un mike 20 months Aged Out No longer eligible b ased on patient's age to complete this topic Varicella Vaccines Aged Out No longer eligible based on patient's age to complete this topic
--- OUTSIDE RECORDS SUMMARY | 2025-02-18 10:45 | XMS_ITS | Clinical Summary ---
Author Organization [employer] Address [address] [place] [address] [address] [place] [address] Care Team Providers Care Manager Publishing Name Role Phone Unavailable Primary Care Provider [...] Polytrim eye drops. -ER precautions given. Immunizations Immunization Administration Dates Next Due Influenza Injectable Quadriv [...] 68 05/02/2024 3:00 PM EDT Temperature 36.1 C (97 F) 05/02/2024 3:00 PM EDT Respiratory Rate 17 [...] Panel 1964 SDOH Screening 1964 Sigmoidoscopy 1964 Disability Screening 1964 Alcohol/Substance Use Screening 1976 Hepatitis C Screening 1982 DTaP/Tdap/Td Vaccines (1 - Tdap) 1983 Pneumococcal Vaccine: 50+ Years (1 of 1 - PCV) 2014 Zoster Vaccines (1 of 2) 2014 COVID-19 Vaccine (2 - 2023-2 5 season) 2024 12/15/2020 Influenza Vaccine (#1) 2025 , 08/16/2018 Tobacco Screening 05/02/2025 05/02/2024 RSV Patients and Patients Aged 60 years or older (1 - 1-dose 75+ series) 2039 HIB [...] patient's age to complete this topic Insurance [facility] ONE CARE < 65 [place] [id number]
[2025-02-18 10:59] LABS: Hematocrit 47.9 % (42.0-52.0); Hemoglobin 15.8 g/dl (14.0-18.0); Imm Gran Abs Auto 0.02 X10*3/uL (0.00-0.03); Imm Gran Pct Auto 0.3 % (0.0-0.4); Lymphocytes Absolute Auto 2.1 X10*3/uL (1.2-4.9); Mean Corpuscular HGB Conc 33.0 g/dl (31.0-36.0); Mean Corpuscular Hemoglobin 28.8 pg (27.0-33.0); Mean Corpuscular Volume 87.4 fL (80.0-98.0); NRBC Abs Auto 0.000 X10*3/uL (0.0-0.012); NRBC Pct Auto 0.0 /100WBC (0.0-0.2); Platelet Count 196 X10*3/uL (160-400); Red Blood Count 5.48 X10*6/uL (4.60-5.80); White Blood Count 5.8 X10*3/uL (4.8-10.8)
[2025-02-18 11:07] LABS: Hemoglobin A1C 224.8756 umol/L; Total Hemoglobin (HGBA1C) 4068.5931 umol/L
[2025-02-18 12:02] LABS: Cholesterol 228 mg/dL (<200); HDL Cholesterol 32 mg/dL (>40); Triglycerides 955 mg/dL (<150)
[2025-02-18 12:37] LABS: Alanine Aminotransferase 29 U/L (0-40); Albumin Level 4.3 g/dL (3.5-5.0); Alkaline Phosphatase 82 U/L (39-117); Anion Gap 14 (12-20); Aspartate Amino Transferase 29 U/L (5-37); Blood Urea Nitrogen 17 mg/dL (9-16); Calcium 9.3 mg/dL (8.4-10.2); Carbon Dioxide 24 mmol/L (22-29); Chloride 109 mmol/L (96-108); Estimated Glomerular Filt Rate > 60; Potassium 4.6 mmol/L (3.3-5.1); Sodium 142 mmol/L (135-145); Total Protein 6.6 g/dL (6.5-8.0)
== END 2025-02-18 10:05 | disposition home or self-care (01) ==
LOC: HO.LAB 10:04
PROVIDERS: PCP Internal Medicine; Visit Provider Internal Medicine
DX: Z09 Encounter for follow-up examination after completed treatment for conditions other than malignant neoplasm (principal); E11.40 Type 2 diabetes mellitus with diabetic neuropathy, unspecified; E78.00 Pure hypercholesterolemia, unspecified; I10 Essential (primary) hypertension; Z80.42 Family history of malignant neoplasm of prostate
CPT/HCPCS: 36415; 80053; 80061; 82043; 82570; 83036; 84153; 85025

== ENCOUNTER 2025-05-17 14:23 | Outpatient (AMB) | payer OTHER, SELFPAY ==
--- NOTE | 2025-05-17 14:28 | MHC.OFFVIS ---
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 He is a patient of Dr. Guadarrama. He is seen for the following urologic conditions - family history prostate cancer - lower urinary tract symptoms Lower urinary tract symptoms On doxazosin PSA - 03/01 1.2 Six-month follow-up lab work [facility] Medical History Osteoarthritis of right knee Obesity due to excess calories Hemorrhoids Diverticulosis Colon cancer screening Non-proliferative diabetic retinopathy, mild, both eyes Diabetes type 2, uncontrolled Depression History of pancreatitis Overweight (BMI 25.0-29.9) Vitamin D deficiency Hypertension prison (current) use of insulin Dyslipidemia Surgical History H/O hand surgery History of colonoscopy (~2020) Hx of colonoscopy Hx of appendectomy Hx of inguinal hernia repair Hx of knee surgery Family History Father Diabetes Prostate cancer Mother Diabetes Social History Household Members: Spouse and Children Alcohol intake: former Patient Tobacco Use Status: Former Tobacco user Tobacco use type: Cigarette Current occupational status: disabled 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/17/[facility]:13 UA pH 6.0 Last Edit by Amy Garcia [facility] on 05/17/25 16:13 UA Blood 0 Bob/uL Last Edit by Amy Garcia [facility] on 05/17/25 16:13 UA Specific [place] 1.020 Last Edit [facility] 05/17/25 16:13 UA Ketone Last Edit [facility] 05/17/25 16:13 UA Bilirubin 0 mg/dL Last Edit [facility] 05/17/25 16:13 UA Glucose 1000 mg/dL Last Edit [facility] 05/17/25 16:13 Assessment & Plan Assessment & Plan (1) Bladder outlet obstruction: Code(s): N32.0 - Bladder-neck obstruction Category: Medical (2) Erectile dysfunction associated with type 2 diabetes mellitus: Code(s): E11.69 - Type 2 diabetes mellitus with other specified complication; N52.1 - Erectile dysfunction due to diseases classified elsewhere Category: Medical (3) Premature ejaculation: Code(s): F52.4 - Premature ejaculation Category: Medical Orders: Orders Testosterone, Total 5 Months E11.69 - Type 2 diabetes mellitus with other specified complication, N52.1 - Erectile dysfunction due to diseases classified elsewhere Prostate Specific Antigen 5 Months E11.69 - Type 2 diabetes mellitus with other specified complication, N52.1 - Erectile dysfunction due to diseases classified elsewhere AMB Urinalysis Automated Today Z13.9 - Encounter for screening, unspecified Medications: New tadalafil 5 mg PO DAILY 90 days 90 tabs 1RF sexual activity F52.4 - Premature ejaculation Coding Diagnoses Bladder outlet obstruction N32.0 Erectile dysfunction associated with type 2 diabetes mellitus E11.69; N52.1 Premature ejaculation F52.4
== END 2025-05-17 14:58 | disposition home or self-care (01) ==
LOC: HO.HUSH 14:23
PROVIDERS: PCP Internal Medicine; Visit Provider Urology
DX: Z13.9 Encounter for screening, unspecified (principal)

== ENCOUNTER → 2025-05-17 14:23 | Outpatient (BNVA) | payer OTHER, SELFPAY | PROVIDERS: PCP Internal Medicine; Visit Provider Urology | DX: N32.0 Bladder-neck obstruction (principal) | CPT/HCPCS: 81003 ==

== ENCOUNTER 2025-05-22 09:09 | Outpatient (REF) | payer OTHER, SELFPAY ==
--- OUTSIDE RECORDS SUMMARY | 2025-05-22 10:11 | XMS_ITS | Clinical Summary ---
Author Organization [employer] Address [address] [place] [address] [address] [place] [address] Care Team Providers Care Automation Test Developer Name Role Phone Unavailable Primary Care Provider [...] of 2) 2014 COVID-19 Vaccine (2 - 2024-2 6 season) 2025 12/15/2020 Influenza Vaccine (#1) 2025 , 08/16/2018 [...] patient's age to complete this topic Insurance [facility] ONE CARE < 65 [place] [id number]
--- OUTSIDE RECORDS SUMMARY | 2025-05-22 10:11 | XMS_ITS | Encounter Summary ---
Author Organization [facility] [facility] Address [address] [place] [address] [address] [place] [address] Care Team Providers Care Video Editing Internship Name Role Phone Unavailable Primary Care Provider Unavailabl e Encounter Details Date Type Department Care Team (Latest Contact Info) Description 08/25/2021 Abstract [facility] CONVERSIONS Dental, Provider, DDS Social History Tobacco [...]
--- OUTSIDE RECORDS SUMMARY | 2025-05-22 10:11 | XMS_ITS | Clinical Summary ---
Author Organization [facility] Address [address] [place] [address] Care Team Providers Care Driller Portable Name Role Phone Unavailable Primary Care Provider Unavailabl e Social History Tobacco Use Types Packs/Day Years Used Date Smoking Tobacco: Never Assessed Sex and Gender Information Value Date Recorded Sex Assigned at Not on file Legal Sex Male 9:02 AM EST Gender Identity Not on file Sexual Orientation Not on file Plan of Treatment Health Maintenance Due Date Last Done Comments Colorectal Cancer Screening: Colonoscopy 1964 DTaP,Tdap,and Td Vaccines (1 - Tdap) 1983 Pneumococcal Vaccine: 50+ Ye ars (1 of 1 - PCV) 2014 Zoster Vaccines (1 of 2) 2014 Cholesterol Screening (Lipid Panel) 07/11/2022 HIV Screening 07/11/2022 Hepatitis C Screening 07/11/2022 Social Influencers of Health Screening 07/11/2022 Depression Screening 08/08/2024 COVID-19 Vaccine (1 - 2023-2 5 season) 2025 Influenza Vaccine (#1) 2025 RSV Immunization Adult [...]
--- OUTSIDE RECORDS SUMMARY | 2025-05-22 10:11 | XMS_ITS | Encounter Summary ---
Author Organization [employer] [facility] Address [address] [place] [address] [address] [place] [address] Care Team Providers Care Body Shop Technician Name Role Phone Unavailable Primary Care Provider Unavailabl e Encounter Details Date Type Department Care Team (Latest Contact Info) Description 04/06/2019 Abstract C CONVERSIONS Dental, Provider, DDS Social History Tobacco [...]
[2025-05-22 11:18] LABS: Alanine Aminotransferase 41 U/L (0-40); Albumin Level 4.6 g/dL (3.5-5.0); Alkaline Phosphatase 74 U/L (39-117); Anion Gap 11 (12-20); Aspartate Amino Transferase 32 U/L (5-37); Blood Urea Nitrogen 17 mg/dL (9-16); Calcium 9.2 mg/dL (8.4-10.2); Carbon Dioxide 27 mmol/L (22-29); Chloride 109 mmol/L (96-108); Cholesterol 131 mg/dL (<200); Estimated Glomerular Filt Rate > 60; HDL Cholesterol 43 mg/dL (>40); Potassium 4.5 mmol/L (3.3-5.1); Sodium 142 mmol/L (135-145); Thyroid Stimulating Hormone 3.41 uIU/mL (0.32-4.0); Total Protein 6.6 g/dL (6.5-8.0); Triglycerides 82 mg/dL (<150)
== END 2025-05-22 09:10 | disposition home or self-care (01) ==
LOC: HO.LAB 09:09
PROVIDERS: PCP Internal Medicine; Visit Provider Internal Medicine
DX: I10 Essential (primary) hypertension (principal); E11.9 Type 2 diabetes mellitus without complications; E78.1 Pure hyperglyceridemia; F17.210 Nicotine dependence, cigarettes, uncomplicated; Z80.42 Family history of malignant neoplasm of prostate; Z79.4 Long term (current) use of insulin
CPT/HCPCS: 36415; 80053; 80061; 83036; 84443